=== PATIENT | male | born 1950 | race Two or more races ===

== ENCOUNTER → 2016-08-25 | Outpatient (CLI) | payer MEDICARE, OTHER ==
[~2016-08-25] MED LIST: ALBUTEROL SULF 2.5 MG/0.5ML(0.5%) NEB SOLN ONE; AMIT25TA9; BACL10TA; GABA300C8; PROVENTIL 90 MCG
== END | disposition home or self-care (01) ==
LOC: RT 08:31
PROVIDERS: ATTEND Internal Medicine Pulmonary Disease
DX: J44.9 Chronic obstructive pulmonary disease, unspecified (principal)
CPT/HCPCS: 94060

== ENCOUNTER → 2016-11-03 | Outpatient (CLI) | payer MEDICARE, OTHER ==
[~2016-11-03] MED LIST changes: -ALBUTEROL SULF 2.5 MG/0.5ML(0.5%) NEB SOLN ONE; +GABA-497; -GABA300C8
== END | disposition home or self-care (01) ==
LOC: RT 08:22
PROVIDERS: ATTEND Internal Medicine Pulmonary Disease
DX: J44.9 Chronic obstructive pulmonary disease, unspecified (principal); R09.02 Hypoxemia
CPT/HCPCS: 94620

== ENCOUNTER → 2017-02-23 | Outpatient (CLI) | payer MEDICARE, OTHER ==
[2017-02-23 11:42] LABS: Basophils # (auto) 0.1 uL; Eosinophils # (auto) 0.1 uL; Eosinophils % (auto) 1.6 % (0.0-7.0); Hematocrit 47.9 % (41.0-53.0); Hemoglobin 16.2 g/dL (13.5-17.5); Lymphocytes # (auto) 1.2 uL; Lymphocytes % (auto) 18.1 % (10.0-50.0); Mean Corpuscular Hemoglobin 28.5 pg (28.0-32.0); Mean Corpuscular Hgb Conc. 33.8 g/dL (32.0-36.0); Mean Corpuscular Volume 84.3 fL (80.0-100.0); Monocytes # (auto) 0.4 uL; Monocytes % (auto) 6.2 % (0.0-12.0); Neutrophils # (auto) 4.7 uL; Neutrophils % (auto) 73.1 % (37.0-80.0); Nucleated Red Blood Cells % 0.2 %; Platelet Count (auto) 234 10^3/uL (140-450); Red Blood Cells 5.68 10^6/uL (4.5-5.90); Red Cell Distribution Width 14.7 % (11.8-14.3); White Blood Cell 6.4 10^3/uL (4.4-10.8)
[2017-02-23 12:22] LABS: Albumin 4.1 g/dL (3.4-5.0); BUN/Creatinine Ratio 15.5; Bilirubin, Total 0.8 mg/dL (0.2-1.0); Calcium 9.2 mg/dL (8.5-10.1); Potassium 4.2 mmol/L (3.5-5.1); Total Protein 8.8 g/dL (6.4-8.2)
[2017-02-24 09:28] LABS: Urine Bacteria NONE SEEN /hpf (None Seen); Urine Blood Negative /uL (Negative); Urine Mucus FEW (None Seen); Urine Specific Gravity 1.027 (1.001-1.035); Urine WBC 1 /hpf (0 - 3)
== END | disposition home or self-care (01) ==
LOC: LAB 10:20
PROVIDERS: ATTEND Family Medicine
DX: J44.9 Chronic obstructive pulmonary disease, unspecified (principal); J84.10 Pulmonary fibrosis, unspecified; Z79.899 Other long term (current) drug therapy
CPT/HCPCS: 36415; 80053; 80061; 81001; 82306; 85025

== ENCOUNTER 2017-05-11 09:18 | Emergency (ER) | payer MEDICARE, OTHER ==
[~2017-05-11] VITALS: Ht 180.3 cm; Wt 88.5 kg
[~2017-05-11 09:18] MED LIST changes: -AMIT25TA9; +AMIT25TA9 PO; -GABA-497; +GABA300C10; -PROVENTIL 90 MCG; +PROVENTIL 90 MCG INH
[2017-05-11 11:12] LABS: Basophils # (auto) 0.1 uL; Eosinophils # (auto) 0.1 uL; Lymphocytes # (auto) 1.2 uL; Monocytes # (auto) 0.5 uL
[2017-05-11 11:18] LABS: Basophils % (auto) 0.8 % (0.0-2.0); Eosinophils % (auto) 1.5 % (0.0-7.0); Hematocrit 47.2 % (41.0-53.0); Hemoglobin 15.6 g/dL (13.5-17.5); Lymphocytes % (auto) 17.2 % (10.0-50.0); Mean Corpuscular Hemoglobin 27.1 pg (28.0-32.0); Mean Corpuscular Hgb Conc. 33.1 g/dL (32.0-36.0); Mean Corpuscular Volume 81.9 fL (80.0-100.0); Neutrophils % (auto) 72.5 % (37.0-80.0); Nucleated Red Blood Cells % 0.4 %; Platelet Count (auto) 224 10^3/uL (140-450); Red Blood Cells 5.76 10^6/uL (4.5-5.90); Red Cell Distribution Width 15.4 % (11.8-14.3); White Blood Cell 6.9 10^3/uL (4.4-10.8)
[2017-05-11 11:29] LABS: Albumin 4.2 g/dL (3.4-5.0); BUN/Creatinine Ratio 17.1; Magnesium 2.8 mg/dL (1.6-2.6); Potassium 4.2 mmol/L (3.5-5.1); Total Protein 8.9 g/dL (6.4-8.2)
[2017-05-11 14:48] VITALS: BP 146/82
== END 2017-05-11 14:55 | disposition home or self-care (01) ==
LOC: ER 09:18
DX: J44.9 Chronic obstructive pulmonary disease, unspecified (principal); R55 Syncope and collapse; Z87.891 Personal history of nicotine dependence
CPT/HCPCS: 36415; 70450; 71046; 80053; 83735; 84484; 85025; 93005

== ENCOUNTER → 2017-05-17 | Outpatient (CLI) | payer MEDICARE, OTHER ==
[~2017-05-17] MED LIST changes: +GLAT1INJ SC
== END | disposition home or self-care (01) ==
LOC: LAB 13:05
PROVIDERS: ATTEND Family Medicine
DX: R74.8 Abnormal levels of other serum enzymes (principal)
CPT/HCPCS: 36415; 84484

== ENCOUNTER 2017-06-08 12:12 | Inpatient (IN) | payer MEDICARE, OTHER ==
[~2017-06-08] VITALS: Ht 180.3 cm; Wt 81.2 kg
[~2017-06-08 12:12] MED LIST changes: -APIX5TAB PO; -DILT-10 PO; -GLAT1INJ SC; -IOHEXOL 350 MG/ML 100ML IJ ONE; -SILD20TA PO
[2017-06-08] MEDS ORDERED: methylPREDNISolone SOD SUCC 125 MG/2 ML VL IV ONE (12:30)
[2017-06-08 12:49] LABS: Eosinophils # (auto) 0.1 uL; Lymphocytes # (auto) 0.9 uL; Mean Corpuscular Hemoglobin 26.3 pg (28.0-32.0); Monocytes # (auto) 0.6 uL
[2017-06-08 12:50] LABS: Basophils # (auto) 0.1 uL; Basophils % (auto) 0.9 % (0.0-2.0); Eosinophils % (auto) 0.7 % (0.0-7.0); Hematocrit 43.4 % (41.0-53.0); Mean Corpuscular Hgb Conc. 32.2 g/dL (32.0-36.0); Mean Corpuscular Volume 81.7 fL (80.0-100.0); Monocytes % (auto) 9.1 % (0.0-12.0); Neutrophils # (auto) 5.4 uL; Neutrophils % (auto) 76.3 % (37.0-80.0); Nucleated Red Blood Cells % 0.2 %; Platelet Count (auto) 218 10^3/uL (140-450); Red Blood Cells 5.31 10^6/uL (4.5-5.90); Red Cell Distribution Width 16.2 % (11.8-14.3)
[2017-06-08 13:07] LABS: Alanine Aminotransferase 17 U/L (16-61); Albumin 3.6 g/dL (3.4-5.0); Anion Gap 3 (5-15); Aspartate Aminotransferase 18 U/L (15-37); BUN/Creatinine Ratio 13.1; Blood Urea Nitrogen 13 mg/dL (7-18); Calcium 8.6 mg/dL (8.5-10.1); Carbon Dioxide 31 mmol/L (21-32); Chloride 104 mmol/L (98-107); GFR African American 97 mL/min; GFR Non-African American 80 mL/min; Glucose 108 mg/dL (74-106); Magnesium 2.4 mg/dL (1.6-2.6); Potassium 4.8 mmol/L (3.5-5.1); Sodium 138 mmol/L (136-145)
[2017-06-08 13:13] LABS: Alkaline Phosphatase 70 U/L (45-117); Bilirubin, Total 0.9 mg/dL (0.2-1.0); Total Protein 8.2 g/dL (6.4-8.2)
[2017-06-08] MEDS ORDERED: diphenhdrAMINE HCL 50 MG/1 ML VL IV ONE (13:30)
[2017-06-08] MEDS ORDERED: DILTIAZEM HCL 120MG ER CAP PO ONE (13:45)
[2017-06-08] MEDS ORDERED: IOHEXOL 350 MG/ML 100ML IJ ONE (14:28)
[2017-06-08 14:29] LABS: INR 1.1 (0.9-1.15); Partial Thromboplastin Time 30.3 sec (22.64-33.71)
[2017-06-08] MEDS ORDERED: ENOXAPARIN SOD 100 MG/1 ML SYRINGE SC ONE (15:30)
[2017-06-08] MEDS ORDERED: NITROGLYCERIN 0.4 MG SL TAB SL PRN (16:45)
[2017-06-08] MEDS ORDERED: FUROSEMIDE 20 MG/2 ML VIAL IV ONE (16:45)
[2017-06-08] MEDS ORDERED: MORPHINE SULFATE 4 MG/ML SYR/VIAL IV PRN (16:45)
[2017-06-08] MEDS ORDERED: POTASSIUM CHL 20 Meq TABLET PO ONE (16:45)
[2017-06-08] MEDS ORDERED: cefTRIAXone 1GM/10ml IVPUSH 10 ML IV ONE (16:45)
[2017-06-08] MEDS ORDERED: AZITHROMYCIN 500MG/ 250ML 250 ML IV ONE (17:00)
[2017-06-08] MEDS: BUDESONIDE (INHALATION) 0.5 MG/2 ML NEB NEB SCH (18:05)
[2017-06-08] MEDS: IPRATROPIUM BROM 0.5 MG/2.5ML INH SOL NEB SCH (18:28)
[2017-06-08] MEDS: ALBUTEROL SULF 2.5 MG/0.5ML(0.5%) NEB SOLN NEB SCH (18:29)
[2017-06-08 18:37] VITALS: BP 122/81
[2017-06-08 18:59] LABS: Urine WBC None Seen /hpf (0 - 3)
[2017-06-08 19:25] LABS: Urine Bacteria NONE SEEN /hpf (None Seen); Urine Blood Negative /uL (Negative); Urine Specific Gravity 1.033 (1.001-1.035)
[2017-06-08 21:45] VITALS: BP 114/70
[2017-06-08] MEDS: GABAPENTIN 300 MG CAP PO SCH (21:51)
[2017-06-08] MEDS: AMITRIPTYLINE HCL 25 MG TAB PO SCH (21:51)
[2017-06-08] MEDS: BACLOFEN 10 MG TAB PO PRN (21:51)
[2017-06-09] MEDS ORDERED: ENOXAPARIN SOD 80 MG/0.8ML SYRINGE SC SCH (03:00)
[2017-06-09] MEDS ORDERED: GLAT1INJ SC (04:23)
[2017-06-09 05:00] VITALS: BP 97/62
[2017-06-09] MEDS: GABAPENTIN 300 MG CAP PO SCH ×3 (05:56→22:45)
[2017-06-09] MEDS: BACLOFEN 10 MG TAB PO PRN ×2 (05:56→22:45)
[2017-06-09] MEDS: ALBUTEROL SULF 2.5 MG/0.5ML(0.5%) NEB SOLN NEB SCH ×5 (06:57→23:52)
[2017-06-09] MEDS: IPRATROPIUM BROM 0.5 MG/2.5ML INH SOL NEB SCH ×5 (06:57→23:52)
[2017-06-09 07:03] LABS: BUN/Creatinine Ratio 19.3; Potassium 4.8 mmol/L (3.5-5.1)
[2017-06-09] MEDS: BUDESONIDE (INHALATION) 0.5 MG/2 ML NEB NEB SCH ×2 (07:17→19:21)
[2017-06-09 09:00] VITALS: BP 121/68
[2017-06-09] MEDS: DILTIAZEM HCL 120MG ER CAP PO SCH ×2 (10:00→11:58)
[2017-06-09] MEDS: AZITHROMYCIN 500MG/ 250ML 250 ML IV SCH (10:14)
[2017-06-09] MEDS: cefTRIAXone 1GM/10ml IVPUSH 10 ML IV SCH (10:14)
[2017-06-09 13:00] VITALS: BP 133/68
[2017-06-09 17:00] VITALS: BP 105/60
[2017-06-09 22:00] VITALS: BP 106/70
[2017-06-09] MEDS: APIXABAN 5 MG TAB PO SCH (22:44)
[2017-06-09] MEDS: AMITRIPTYLINE HCL 25 MG TAB PO SCH (22:44)
[2017-06-10 05:16] VITALS: BP 104/55
[2017-06-10] MEDS: BACLOFEN 10 MG TAB PO PRN ×2 (06:16→21:08)
[2017-06-10] MEDS: GABAPENTIN 300 MG CAP PO SCH ×3 (06:16→21:07)
[2017-06-10] MEDS: ALBUTEROL SULF 2.5 MG/0.5ML(0.5%) NEB SOLN NEB SCH ×3 (06:57→19:17)
[2017-06-10] MEDS: BUDESONIDE (INHALATION) 0.5 MG/2 ML NEB NEB SCH ×2 (06:57→19:18)
[2017-06-10] MEDS: IPRATROPIUM BROM 0.5 MG/2.5ML INH SOL NEB SCH ×3 (06:57→19:17)
[2017-06-10 07:14] LABS: Albumin 3.1 g/dL (3.4-5.0); BUN/Creatinine Ratio 24.1; Calcium 8.3 mg/dL (8.5-10.1); Potassium 4.6 mmol/L (3.5-5.1)
[2017-06-10 07:19] LABS: Bilirubin, Total 0.4 mg/dL (0.2-1.0); Total Protein 7.1 g/dL (6.4-8.2)
[2017-06-10 07:33] LABS: Basophils # (auto) 0 uL; Hemoglobin 12.4 g/dL (13.5-17.5); Neutrophils # (auto) 5.9 uL; Nucleated Red Blood Cells % 0.1 %; White Blood Cell 7.8 10^3/uL (4.4-10.8)
[2017-06-10 07:41] LABS: Basophils % (auto) 0.6 % (0.0-2.0); Eosinophils # (auto) 0 uL; Eosinophils % (auto) 0.6 % (0.0-7.0); Hematocrit 37.4 % (41.0-53.0); Lymphocytes # (auto) 1.3 uL; Lymphocytes % (auto) 16.2 % (10.0-50.0); Mean Corpuscular Hemoglobin 26.6 pg (28.0-32.0); Mean Corpuscular Hgb Conc. 33.1 g/dL (32.0-36.0); Mean Corpuscular Volume 80.4 fL (80.0-100.0); Monocytes # (auto) 0.5 uL; Monocytes % (auto) 6.9 % (0.0-12.0); Neutrophils % (auto) 75.7 % (37.0-80.0); Platelet Count (auto) 223 10^3/uL (140-450); Red Blood Cells 4.66 10^6/uL (4.5-5.90); Red Cell Distribution Width 16.6 % (11.8-14.3)
[2017-06-10 08:00] VITALS: BP 109/67
[2017-06-10] MEDS: cefTRIAXone 1GM/10ml IVPUSH 10 ML IV SCH (08:46)
[2017-06-10] MEDS: AZITHROMYCIN 500MG/ 250ML 250 ML IV SCH (10:24)
[2017-06-10] MEDS: APIXABAN 5 MG TAB PO SCH ×2 (10:25→21:07)
[2017-06-10 12:00] VITALS: BP 121/75
[2017-06-10] MEDS ORDERED: APIXABAN 5 MG TAB PO SCH (14:45)
[2017-06-10 17:00] VITALS: BP 100/65
[2017-06-10] MEDS: AMITRIPTYLINE HCL 25 MG TAB PO SCH (21:07)
[2017-06-10 22:00] VITALS: BP 100/63
[2017-06-11 05:00] VITALS: BP 91/59
[2017-06-11] MEDS: GABAPENTIN 300 MG CAP PO SCH (06:10)
[2017-06-11] MEDS: BACLOFEN 10 MG TAB PO PRN (06:10)
[2017-06-11] MEDS: IPRATROPIUM BROM 0.5 MG/2.5ML INH SOL NEB SCH ×3 (06:22→11:47)
[2017-06-11] MEDS: ALBUTEROL SULF 2.5 MG/0.5ML(0.5%) NEB SOLN NEB SCH ×3 (06:22→11:47)
[2017-06-11 08:00] VITALS: BP 118/69
[2017-06-11] MEDS: APIXABAN 5 MG TAB PO SCH (09:23)
[2017-06-11] MEDS ORDERED: DILTIAZEM HCL 120MG ER CAP PO SCH (10:00)
[2017-06-11] MEDS: BUDESONIDE (INHALATION) 0.5 MG/2 ML NEB NEB SCH (11:47)
[2017-06-11 13:00] VITALS: BP 125/73
[2017-06-11 14:54] VITALS: BP 125/73
[2017-06-11] MEDS ORDERED: APIXABAN 5 MG TAB PO SCH (22:00)
[2017-06-16] MEDS ORDERED: APIXABAN 5 MG TAB PO SCH (22:00)
== END 2017-06-11 15:25 | disposition home or self-care (01) | DRG 175 ==
LOC: ER 12:12 → TELE 12:13 → TELE-WESTW 20:15
PROVIDERS: ADMIT Internal Medicine; ATTEND Internal Medicine
DX: I26.99 Other pulmonary embolism without acute cor pulmonale (principal); I50.31 Acute diastolic (congestive) heart failure; J96.20 Acute and chronic respiratory failure, unspecified whether with hypoxia or hypercapnia; G35 Multiple sclerosis; I11.9 Hypertensive heart disease without heart failure; I27.20 Pulmonary hypertension, unspecified; J43.9 Emphysema, unspecified; J84.10 Pulmonary fibrosis, unspecified; F32.9 Major depressive disorder, single episode, unspecified; Z60.2 Problems related to living alone; G89.4 Chronic pain syndrome; Z79.01 Long term (current) use of anticoagulants; Z87.891 Personal history of nicotine dependence; Z99.81 Dependence on supplemental oxygen; Z79.899 Other long term (current) drug therapy; Z90.2 Acquired absence of lung [part of]
CPT/HCPCS: 36415; 71045; 71275; 80048; 80053; 81001; 83735; 83880; 84484; 85025; 85379; 85610; 85730; 86850; 86900; 86901; 93005; 93306; 93970; 94640; 94761; 96365; 96372; 96375; 99291

== ENCOUNTER → 2017-06-08 | Outpatient (CLI) | payer MEDICARE, OTHER ==
[~2017-06-08] MED LIST changes: +APIX5TAB PO; +DILT-10 PO; +IOHEXOL 350 MG/ML 100ML IJ ONE; +SILD20TA PO
== END | disposition home or self-care (01) ==
LOC: XYW 10:38
PROVIDERS: ATTEND Internal Medicine
DX: R55 Syncope and collapse (principal)
CPT/HCPCS: 93306

== ENCOUNTER → 2017-08-09 | Outpatient (CLI) | payer MEDICARE, OTHER ==
[~2017-08-09] MED LIST changes: +APIX5TAB PO; +DILT-10 PO; +GLAT1INJ SC; +SILD20TA PO
[2017-08-09 11:26] LABS: Basophils # (auto) 0.2 uL; Basophils % (auto) 3.1 % (0.0-2.0); Eosinophils # (auto) 0.2 uL; Eosinophils % (auto) 3.3 % (0.0-7.0); Hematocrit 44.9 % (41.0-53.0); Hemoglobin 15.1 g/dL (13.5-17.5); Lymphocytes # (auto) 1.3 uL; Lymphocytes % (auto) 20.5 % (10.0-50.0); Mean Corpuscular Hgb Conc. 33.6 g/dL (32.0-36.0); Mean Corpuscular Volume 83.3 fL (80.0-100.0); Monocytes # (auto) 0.6 uL; Monocytes % (auto) 9.4 % (0.0-12.0); Neutrophils # (auto) 3.9 uL; Neutrophils % (auto) 63.7 % (37.0-80.0); Nucleated Red Blood Cells % 0.6 %; Platelet Count (auto) 181 10^3/uL (140-450); Red Blood Cells 5.39 10^6/uL (4.5-5.90); Red Cell Distribution Width 18.1 % (11.8-14.3); White Blood Cell 6.2 10^3/uL (4.4-10.8)
[2017-08-09 11:39] LABS: INR 0.98 (0.9-1.15); Partial Thromboplastin Time 26.3 sec (22.64-33.71); Prothrombin Time 10.7 sec (9.37-12.3)
[2017-08-09 12:34] LABS: Albumin 3.9 g/dL (3.4-5.0); Bilirubin, Total 0.9 mg/dL (0.2-1.0); Calcium 8.9 mg/dL (8.5-10.1); Potassium 4.6 mmol/L (3.5-5.1); Total Protein 7.8 g/dL (6.4-8.2)
== END | disposition home or self-care (01) ==
LOC: LAB 11:11
PROVIDERS: ATTEND Internal Medicine
DX: Z01.812 Encounter for preprocedural laboratory examination (principal); I27.20 Pulmonary hypertension, unspecified; I10 Essential (primary) hypertension; J44.9 Chronic obstructive pulmonary disease, unspecified; Z79.01 Long term (current) use of anticoagulants; Z87.891 Personal history of nicotine dependence
CPT/HCPCS: 36415; 80053; 85025; 85610; 85730

== ENCOUNTER 2017-08-11 08:22 | Day surgery (SDC) | payer MEDICARE, OTHER ==
[~2017-08-11] VITALS: Ht 180.3 cm; Wt 84.0 kg
[2017-08-11] MEDS ORDERED: LIDOCAINE HCL 2 %PF INJ 10ML AMP IJ ONE (08:34)
[2017-08-11] MEDS ORDERED: IODIXANOL 320MG/ML 100ML BTL IV ONE (08:34)
[2017-08-11] MEDS ORDERED: ANGIOMAX 250 MG VIAL IV ONE (08:56)
[2017-08-11] MEDS ORDERED: MIDAZOLAM HCL 1MG/1ML-2 ML VIAL ONE (08:56)
[2017-08-11] MEDS ORDERED: SODIUM CHL 0.9% 0 ML ONE (08:56)
[2017-08-11] MEDS ORDERED: fentaNYL CITRATE 100 MCG/2 ML VL ONE (08:56)
== END 2017-08-11 12:45 | disposition home or self-care (01) ==
LOC: CATH 08:22
PROVIDERS: ATTEND Internal Medicine
DX: I27.20 Pulmonary hypertension, unspecified (principal); I42.9 Cardiomyopathy, unspecified; Z82.49 Family history of ischemic heart disease and other diseases of the circulatory system; Z86.711 Personal history of pulmonary embolism; G35 Multiple sclerosis; J43.9 Emphysema, unspecified; F32.9 Major depressive disorder, single episode, unspecified; F41.9 Anxiety disorder, unspecified; Z85.118 Personal history of other malignant neoplasm of bronchus and lung; Z87.01 Personal history of pneumonia (recurrent); Z87.891 Personal history of nicotine dependence
CPT/HCPCS: 36600; 82805; C1751; C1760; C1769; C1894; J1644; J2250; J3010; Q9967; 93005; 93458; 99152; 99153

== ENCOUNTER → 2017-09-28 | Outpatient (CLI) | payer MEDICARE, OTHER | END | disposition home or self-care (01) | LOC: XYW 08:27 | PROVIDERS: ATTEND Internal Medicine | DX: I08.8 Other rheumatic multiple valve diseases (principal); I10 Essential (primary) hypertension; J44.9 Chronic obstructive pulmonary disease, unspecified; Z79.01 Long term (current) use of anticoagulants | CPT/HCPCS: 93306 ==

== ENCOUNTER → 2017-10-05 | Outpatient (CLI) | payer MEDICARE, OTHER ==
[2017-10-05 09:50] VITALS: BP 128/74
[2017-10-05 12:15] VITALS: BP 136/86
== END | disposition home or self-care (01) ==
LOC: CHF HDHVI 09:58
PROVIDERS: ATTEND Internal Medicine
DX: I10 Essential (primary) hypertension (principal); I27.20 Pulmonary hypertension, unspecified; Z79.01 Long term (current) use of anticoagulants
CPT/HCPCS: 93701; 94618; G0463

== ENCOUNTER → 2017-11-29 | Outpatient (CLI) | payer MEDICARE, OTHER ==
[~2017-11-29] VITALS: Ht 30.5 cm; Wt 79.6 kg
[~2017-11-29] MED LIST changes: +FUROSEMIDE 40 MG/4 ML VIAL IV ONE; +FUROSEMIDE 40 MG/4 ML VIAL ONE; +POTASSIUM CHL 20 Meq TABLET PO ONE
[2017-11-29 08:55] VITALS: BP 104/60
[2017-11-29 09:47] VITALS: BP 96/54
[2017-11-29 12:05] LABS: Basophils # (auto) 0 uL; Basophils % (auto) 0.7 % (0.0-2.0); Eosinophils # (auto) 0.1 uL; Eosinophils % (auto) 2.6 % (0.0-7.0); Hematocrit 39.9 % (41.0-53.0); Hemoglobin 13.4 g/dL (13.5-17.5); Lymphocytes # (auto) 0.6 uL; Lymphocytes % (auto) 15.4 % (10.0-50.0); Mean Corpuscular Hemoglobin 28.9 pg (28.0-32.0); Mean Corpuscular Hgb Conc. 33.6 g/dL (32.0-36.0); Monocytes # (auto) 0.3 uL; Monocytes % (auto) 8.1 % (0.0-12.0); Neutrophils # (auto) 2.8 uL; Neutrophils % (auto) 73.2 % (37.0-80.0); Nucleated Red Blood Cells % 0.2 %; Platelet Count (auto) 156 10^3/uL (140-450); Red Blood Cells 4.64 10^6/uL (4.5-5.90); Red Cell Distribution Width 14.8 % (11.8-14.3); White Blood Cell 3.8 10^3/uL (4.4-10.8)
[2017-11-29 12:14] LABS: BUN/Creatinine Ratio 15.3; Calcium 8.2 mg/dL (8.5-10.1)
== END | disposition home or self-care (01) ==
LOC: CHF HDHVI 08:54
PROVIDERS: ATTEND Internal Medicine
DX: I11.0 Hypertensive heart disease with heart failure (principal); I50.23 Acute on chronic systolic (congestive) heart failure; D64.9 Anemia, unspecified; F41.9 Anxiety disorder, unspecified; F32.9 Major depressive disorder, single episode, unspecified; J44.9 Chronic obstructive pulmonary disease, unspecified; G35 Multiple sclerosis; I25.10 Atherosclerotic heart disease of native coronary artery without angina pectoris; Z79.01 Long term (current) use of anticoagulants; Z79.899 Other long term (current) drug therapy
CPT/HCPCS: 36415; 80048; 83880; 85025; 96374; G0463; J1940

== ENCOUNTER → 2017-12-02 | Outpatient (CLI) | payer MEDICARE, OTHER ==
[~2017-12-02] MED LIST changes: +POTASSIUM CHL 10 Meq TABLET PO ONE; -POTASSIUM CHL 20 Meq TABLET PO ONE
[2017-12-02 09:25] VITALS: BP 103/60
[2017-12-02 10:30] VITALS: BP 111/61
== END | disposition home or self-care (01) ==
LOC: CHF HDHVI 09:28
PROVIDERS: ATTEND Internal Medicine Cardiovascular Disease
DX: I27.21 Secondary pulmonary arterial hypertension (principal); R06.02 Shortness of breath; G35 Multiple sclerosis; I11.0 Hypertensive heart disease with heart failure; I50.23 Acute on chronic systolic (congestive) heart failure; I25.10 Atherosclerotic heart disease of native coronary artery without angina pectoris; J44.9 Chronic obstructive pulmonary disease, unspecified; F41.9 Anxiety disorder, unspecified; F32.9 Major depressive disorder, single episode, unspecified; Z79.01 Long term (current) use of anticoagulants; Z79.899 Other long term (current) drug therapy
CPT/HCPCS: 96374; G0463; J1940

== ENCOUNTER → 2017-12-09 | Outpatient (CLI) | payer MEDICARE, OTHER ==
[~2017-12-09] MED LIST changes: -FUROSEMIDE 40 MG/4 ML VIAL IV ONE; -FUROSEMIDE 40 MG/4 ML VIAL ONE; -POTASSIUM CHL 10 Meq TABLET PO ONE
== END | disposition home or self-care (01) ==
LOC: XYW 08:35
PROVIDERS: ATTEND Internal Medicine
DX: I08.1 Rheumatic disorders of both mitral and tricuspid valves (principal); I27.20 Pulmonary hypertension, unspecified; I42.9 Cardiomyopathy, unspecified
CPT/HCPCS: 93306

== ENCOUNTER → 2017-12-16 | Outpatient (CLI) | payer MEDICARE, OTHER ==
[2017-12-16 08:50] VITALS: BP 114/65
[2017-12-16 09:35] VITALS: BP 112/69
== END | disposition home or self-care (01) ==
LOC: CHF HDHVI 08:55
PROVIDERS: ATTEND Internal Medicine Cardiovascular Disease
DX: E55.9 Vitamin D deficiency, unspecified (principal); I25.10 Atherosclerotic heart disease of native coronary artery without angina pectoris; G35 Multiple sclerosis; I27.21 Secondary pulmonary arterial hypertension; J44.9 Chronic obstructive pulmonary disease, unspecified; Z87.891 Personal history of nicotine dependence
CPT/HCPCS: 82306; G0463

== ENCOUNTER → 2017-12-30 | Outpatient (CLI) | payer MEDICARE, OTHER ==
[2017-12-30 09:00] VITALS: BP 122/71
[2017-12-30 10:05] VITALS: BP 117/67
[2017-12-30 12:04] LABS: Basophils # (auto) 0 uL; Eosinophils # (auto) 0.1 uL; Eosinophils % (auto) 2.3 % (0.0-7.0); Hemoglobin 15.1 g/dL (13.5-17.5); Lymphocytes # (auto) 0.7 uL; Lymphocytes % (auto) 18.4 % (10.0-50.0); Mean Corpuscular Hemoglobin 28.8 pg (28.0-32.0); Mean Corpuscular Hgb Conc. 33.7 g/dL (32.0-36.0); Mean Corpuscular Volume 85.6 fL (80.0-100.0); Monocytes # (auto) 0.3 uL; Neutrophils # (auto) 2.6 uL; Neutrophils % (auto) 71.3 % (37.0-80.0); Nucleated Red Blood Cells % 0.1 %; Platelet Count (auto) 185 10^3/uL (140-450); Red Blood Cells 5.26 10^6/uL (4.5-5.90); White Blood Cell 3.7 10^3/uL (4.4-10.8)
[2017-12-30 12:17] LABS: Albumin 3.9 g/dL (3.4-5.0); Bilirubin, Total 0.8 mg/dL (0.2-1.0); Calcium 8.5 mg/dL (8.5-10.1); Magnesium 2.8 mg/dL (1.6-2.6); Potassium 4.3 mmol/L (3.5-5.1)
== END | disposition home or self-care (01) ==
LOC: CHF HDHVI 08:59
PROVIDERS: ATTEND Internal Medicine Cardiovascular Disease
DX: I11.0 Hypertensive heart disease with heart failure (principal); I50.23 Acute on chronic systolic (congestive) heart failure; D64.9 Anemia, unspecified; E83.40 Disorders of magnesium metabolism, unspecified; I27.21 Secondary pulmonary arterial hypertension; J44.9 Chronic obstructive pulmonary disease, unspecified
CPT/HCPCS: 36415; 80053; 83735; 83880; 85025; 93701; G0463

== ENCOUNTER → 2018-01-06 | Outpatient (CLI) | payer MEDICARE, OTHER ==
[2018-01-06 08:50] VITALS: BP 116/67
[2018-01-06 09:45] VITALS: BP 112/64
== END | disposition home or self-care (01) ==
LOC: CHF HDHVI 08:57
PROVIDERS: ATTEND Internal Medicine Cardiovascular Disease
DX: I50.9 Heart failure, unspecified (principal); J43.9 Emphysema, unspecified; Z99.81 Dependence on supplemental oxygen; F32.9 Major depressive disorder, single episode, unspecified
CPT/HCPCS: G0463

== ENCOUNTER → 2018-02-01 | Outpatient (CLI) | payer MEDICARE, OTHER ==
[~2018-02-01] MED LIST changes: +CYANOCOBALAMIN (B-12) 1000 MCG/1 ML VIAL IM ONE; +CYANOCOBALAMIN (B-12) 1000 MCG/1 ML VIAL ONE
[2018-02-01 08:50] VITALS: BP 125/68
[2018-02-01 09:38] VITALS: BP 110/65
[2018-02-01 12:06] LABS: Basophils # (auto) 0 uL; Basophils % (auto) 1.2 % (0.0-2.0); Eosinophils # (auto) 0.1 uL; Eosinophils % (auto) 2.7 % (0.0-7.0); Hematocrit 41.3 % (41.0-53.0); Hemoglobin 14.1 g/dL (13.5-17.5); Lymphocytes # (auto) 0.7 uL; Lymphocytes % (auto) 17.8 % (10.0-50.0); Mean Corpuscular Hemoglobin 28.5 pg (28.0-32.0); Mean Corpuscular Hgb Conc. 34.1 g/dL (32.0-36.0); Mean Corpuscular Volume 83.5 fL (80.0-100.0); Monocytes # (auto) 0.3 uL; Neutrophils % (auto) 71.3 % (37.0-80.0); Nucleated Red Blood Cells % 0.5 %; Platelet Count (auto) 188 10^3/uL (140-450); Red Blood Cells 4.95 10^6/uL (4.5-5.90); Red Cell Distribution Width 15.2 % (11.8-14.3); White Blood Cell 4.2 10^3/uL (4.4-10.8)
[2018-02-01 12:40] LABS: Albumin 3.8 g/dL (3.4-5.0); BUN/Creatinine Ratio 16.2; Bilirubin, Total 0.7 mg/dL (0.2-1.0); Calcium 8.5 mg/dL (8.5-10.1)
== END | disposition home or self-care (01) ==
LOC: CHF HDHVI 08:56
PROVIDERS: ATTEND Internal Medicine Cardiovascular Disease
DX: D64.9 Anemia, unspecified (principal); I11.0 Hypertensive heart disease with heart failure; I50.23 Acute on chronic systolic (congestive) heart failure; J44.9 Chronic obstructive pulmonary disease, unspecified; I27.21 Secondary pulmonary arterial hypertension; Z87.891 Personal history of nicotine dependence; Z79.01 Long term (current) use of anticoagulants; Z79.899 Other long term (current) drug therapy; Z99.81 Dependence on supplemental oxygen
CPT/HCPCS: 36415; 80053; 85025; 93701; 96372; G0463; J3420

== ENCOUNTER → 2018-02-28 | Outpatient (CLI) | payer MEDICARE, OTHER ==
[2018-02-28 09:15] VITALS: BP 123/66
[2018-02-28 09:55] VITALS: BP 122/69
== END | disposition home or self-care (01) ==
LOC: CHF HDHVI 08:53
PROVIDERS: ATTEND Internal Medicine Cardiovascular Disease
DX: D64.9 Anemia, unspecified (principal); I11.0 Hypertensive heart disease with heart failure; I50.23 Acute on chronic systolic (congestive) heart failure; I27.21 Secondary pulmonary arterial hypertension; J43.9 Emphysema, unspecified; F32.9 Major depressive disorder, single episode, unspecified; J44.9 Chronic obstructive pulmonary disease, unspecified; Z79.01 Long term (current) use of anticoagulants; Z79.899 Other long term (current) drug therapy; Z87.891 Personal history of nicotine dependence; Z99.81 Dependence on supplemental oxygen
CPT/HCPCS: 93701; 96372; G0463; J3420

== ENCOUNTER → 2018-03-02 | Outpatient (CLI) | payer MEDICARE, OTHER ==
[~2018-03-02] MED LIST changes: -CYANOCOBALAMIN (B-12) 1000 MCG/1 ML VIAL IM ONE; -CYANOCOBALAMIN (B-12) 1000 MCG/1 ML VIAL ONE
== END | disposition home or self-care (01) ==
LOC: XY 08:22
PROVIDERS: ATTEND Internal Medicine
DX: J98.11 Atelectasis (principal); I77.89 Other specified disorders of arteries and arterioles; J98.4 Other disorders of lung; R06.02 Shortness of breath; R07.9 Chest pain, unspecified
CPT/HCPCS: 71045; 78582; A9540; A9558

== ENCOUNTER → 2018-03-14 | Outpatient (CLI) | payer MEDICARE, OTHER ==
[2018-03-14 08:50] VITALS: BP 128/68
[2018-03-14 09:40] VITALS: BP 114/69
[2018-03-14 12:29] LABS: Basophils # (auto) 0.1 uL; Basophils % (auto) 1.1 % (0.0-2.0); Eosinophils # (auto) 0.1 uL; Eosinophils % (auto) 3.1 % (0.0-7.0); Hematocrit 43.5 % (41.0-53.0); Hemoglobin 14.6 g/dL (13.5-17.5); Lymphocytes # (auto) 0.9 uL; Lymphocytes % (auto) 18.5 % (10.0-50.0); Mean Corpuscular Hemoglobin 27.9 pg (28.0-32.0); Mean Corpuscular Hgb Conc. 33.5 g/dL (32.0-36.0); Mean Corpuscular Volume 83.2 fL (80.0-100.0); Monocytes # (auto) 0.4 uL; Monocytes % (auto) 8.3 % (0.0-12.0); Neutrophils # (auto) 3.3 uL; Nucleated Red Blood Cells % 0.6 %; Platelet Count (auto) 187 10^3/uL (140-450); Red Blood Cells 5.22 10^6/uL (4.5-5.90); Red Cell Distribution Width 15.2 % (11.8-14.3); White Blood Cell 4.8 10^3/uL (4.4-10.8)
[2018-03-14 12:34] LABS: Calcium 8.7 mg/dL (8.5-10.1); Magnesium 2.6 mg/dL (1.6-2.6); Potassium 4.1 mmol/L (3.5-5.1)
[2018-03-14 12:37] LABS: BUN/Creatinine Ratio 14.3
== END | disposition home or self-care (01) ==
LOC: CHF HDHVI 09:02
PROVIDERS: ATTEND Internal Medicine Cardiovascular Disease
DX: E83.40 Disorders of magnesium metabolism, unspecified (principal); I10 Essential (primary) hypertension; D64.9 Anemia, unspecified; J44.9 Chronic obstructive pulmonary disease, unspecified; G35 Multiple sclerosis
CPT/HCPCS: 36415; 80048; 83735; 85025; G0463

== ENCOUNTER → 2018-04-04 | Outpatient (CLI) | payer MEDICARE, OTHER ==
[~2018-04-04] VITALS: Ht 30.5 cm; Wt 0.5 kg
[~2018-04-04] MED LIST changes: +CYANOCOBALAMIN (B-12) 1000 MCG/1 ML VIAL IM ONE; +CYANOCOBALAMIN (B-12) 1000 MCG/1 ML VIAL ONE
[2018-04-04 09:00] VITALS: BP 129/79
[2018-04-04 10:20] VITALS: BP 114/73
== END | disposition home or self-care (01) ==
LOC: CHF HDHVI 08:50
PROVIDERS: ATTEND Internal Medicine Cardiovascular Disease
DX: R06.02 Shortness of breath (principal); G35 Multiple sclerosis; I27.20 Pulmonary hypertension, unspecified; J43.9 Emphysema, unspecified; I11.0 Hypertensive heart disease with heart failure; I50.9 Heart failure, unspecified; G89.4 Chronic pain syndrome; F41.9 Anxiety disorder, unspecified; F32.9 Major depressive disorder, single episode, unspecified; I25.10 Atherosclerotic heart disease of native coronary artery without angina pectoris; I42.9 Cardiomyopathy, unspecified; Z79.01 Long term (current) use of anticoagulants; Z87.891 Personal history of nicotine dependence; Z79.899 Other long term (current) drug therapy; Z99.81 Dependence on supplemental oxygen; Z86.711 Personal history of pulmonary embolism
CPT/HCPCS: 93701; 96372; G0463; J3420

== ENCOUNTER → 2018-05-04 | Outpatient (CLI) | payer MEDICARE, OTHER ==
[2018-05-04 09:00] VITALS: BP 114/77
[2018-05-04 09:57] VITALS: BP 106/74
--- NOTE | 2018-05-04 09:57 | NUR ---
CHF CLINIC Discharge Instructions See e-MAR for any mediations given with this visit. Patient education given on disease process. Patient verbalized understanding. Previous labs reviewed. Patient discharged in stable condition with after care instructions and follow up appointment WITH DR VALENZUELA ON 05/05/18 RETURN TO CLINIC ON 06/08/18. NOTE B12 IM L DELTOID ADMIN BY GILMAR LEAHY. CARDIODYNAMICS PERFORMED BY GILMAR LEAHY AND RESULTS REVIEWED WITH PATIENT BY MOISES ENNIS.
[2018-05-04 11:52] LABS: Basophils # (auto) 0 uL; Basophils % (auto) 1.2 % (0.0-2.0); Eosinophils # (auto) 0.1 uL; Eosinophils % (auto) 2.7 % (0.0-7.0); Hematocrit 44.4 % (41.0-53.0); Hemoglobin 14.7 g/dL (13.5-17.5); Lymphocytes # (auto) 0.7 uL; Mean Corpuscular Hemoglobin 27.5 pg (28.0-32.0); Mean Corpuscular Hgb Conc. 33.1 g/dL (32.0-36.0); Mean Corpuscular Volume 83.3 fL (80.0-100.0); Monocytes # (auto) 0.3 uL; Monocytes % (auto) 8.2 % (0.0-12.0); Neutrophils # (auto) 2.8 uL; Neutrophils % (auto) 69.9 % (37.0-80.0); Nucleated Red Blood Cells % 0.2 %; Platelet Count (auto) 168 10^3/uL (140-450); Red Blood Cells 5.33 10^6/uL (4.5-5.90); Red Cell Distribution Width 15.8 % (11.8-14.3); White Blood Cell 4.1 10^3/uL (4.4-10.8)
[2018-05-04 12:03] LABS: Chloride 107 mmol/L (98-107); Potassium 4.5 mmol/L (3.5-5.1); Sodium 140 mmol/L (136-145)
[2018-05-04 12:21] LABS: Alanine Aminotransferase 17 U/L (16-61); Albumin 3.6 g/dL (3.4-5.0); Alkaline Phosphatase 59 U/L (45-117); Anion Gap 6 (5-15); Aspartate Aminotransferase 15 U/L (15-37); BUN/Creatinine Ratio 17.6; Bilirubin, Total 0.7 mg/dL (0.2-1.0); Blood Urea Nitrogen 23 mg/dL (7-18); Calcium 8.6 mg/dL (8.5-10.1); Carbon Dioxide 27 mmol/L (21-32); GFR Non-African American 58 mL/min; Glucose 123 mg/dL (74-106); Magnesium 2.7 mg/dL (1.6-2.6); Total Protein 7.7 g/dL (6.4-8.2)
[2018-05-04 12:34] LABS: GFR African American > 60 mL/min
== END | disposition home or self-care (01) ==
LOC: CHF HDHVI 09:02
PROVIDERS: ATTEND Internal Medicine Cardiovascular Disease
DX: I11.0 Hypertensive heart disease with heart failure (principal); I50.9 Heart failure, unspecified; E83.40 Disorders of magnesium metabolism, unspecified; D64.9 Anemia, unspecified; R06.02 Shortness of breath; I27.21 Secondary pulmonary arterial hypertension; R53.83 Other fatigue; J43.9 Emphysema, unspecified; I42.9 Cardiomyopathy, unspecified; F41.9 Anxiety disorder, unspecified; F32.9 Major depressive disorder, single episode, unspecified; Z85.118 Personal history of other malignant neoplasm of bronchus and lung; Z79.899 Other long term (current) drug therapy; Z79.01 Long term (current) use of anticoagulants; Z79.891 Long term (current) use of opiate analgesic; Z86.711 Personal history of pulmonary embolism; Z90.2 Acquired absence of lung [part of]; Z87.01 Personal history of pneumonia (recurrent); Z99.81 Dependence on supplemental oxygen
CPT/HCPCS: 36415; 80053; 83735; 85025; 93701; 96372; G0463; J3420

== ENCOUNTER → 2018-06-08 | Outpatient (CLI) | payer MEDICARE, OTHER ==
[~2018-06-08] MED LIST changes: -CYANOCOBALAMIN (B-12) 1000 MCG/1 ML VIAL IM ONE; -CYANOCOBALAMIN (B-12) 1000 MCG/1 ML VIAL ONE
[2018-06-08 09:47] VITALS: BP 131/78
[2018-06-08 10:23] VITALS: BP 133/76
--- NOTE | 2018-06-08 10:23 | NUR ---
IN TO CLINIC FOR PAH FOLLOWUP . HOME OXYGEN IN USE AT 2 LPM CONTINUOUS. CARDIODYNAMICS DONE. MEDICATION REVIEW DONE. ADL MANAGEMENT DONE. REVIEWED PREVIOUS LABS AND ADDITIONAL LABS DRAWN AND SENT TODAY. Discharge Instructions See e-MAR for any mediations given with this visit. Patient education given on disease process. Patient verbalized understanding. Previous labs reviewed. Patient discharged in stable condition with after care instructions and follow up appointment IN 2 WEEK FOR CHF AND IN [address] VALENZUELA. ALL CARE PROVIDED BY NAVA ENNIS.
[2018-06-08 12:03] LABS: Potassium 4.3 mmol/L (3.5-5.1)
== END | disposition home or self-care (01) ==
LOC: CHF HDHVI 09:45
PROVIDERS: ATTEND Internal Medicine Cardiovascular Disease
DX: E87.6 Hypokalemia (principal); R94.4 Abnormal results of kidney function studies; I27.20 Pulmonary hypertension, unspecified; I25.10 Atherosclerotic heart disease of native coronary artery without angina pectoris; Z99.81 Dependence on supplemental oxygen
CPT/HCPCS: 36415; 82565; 84132; 84520; 93701; G0463

== ENCOUNTER → 2018-06-17 | Outpatient (CLI) | payer MEDICARE, OTHER ==
[~2018-06-17] MED LIST changes: +DILT120T8 PO; +FLUT100I IN; -GABA300C10; +GABA300C10 PO; +IBUP200C3 PO; +PRE5T PO; +RIOC1TAB9 PO
[2018-06-17 10:30] VITALS: BP 112/66
[2018-06-17 11:20] VITALS: BP 99/63
--- NOTE | 2018-06-17 11:20 | NUR ---
CHF CLINIC Discharge Instructions See e-MAR for any mediations given with this visit. Patient education given on disease process. Patient verbalized understanding. Previous labs reviewed. Patient discharged in stable condition with after care instructions and follow up appointment ON WEDNESDAY. NOTE 1100 PERFORMIST ADMIN BY MALLIKA ENNIS. CHEST XRAY COMPLETED.
== END | disposition home or self-care (01) ==
LOC: CHF HDHVI 10:36
PROVIDERS: ATTEND Internal Medicine Cardiovascular Disease
DX: Z53.9 Procedure and treatment not carried out, unspecified reason (principal)
CPT/HCPCS: 71046; 94640; G0463

== ENCOUNTER → 2018-07-25 | Outpatient (CLI) | payer MEDICARE, OTHER ==
[~2018-07-25] MED LIST changes: +CYANOCOBALAMIN (B-12) 1000 MCG/1 ML VIAL IM ONE; +CYANOCOBALAMIN (B-12) 1000 MCG/1 ML VIAL ONE; -DILT-10 PO; -DILT120T8 PO; +TESTOSTERONE CYPIONATE 200 MG/ML 1ML VIAL IM ONE
[2018-07-25 10:45] VITALS: BP_SYST 100; BP_SYST 99; BP_DIAS 52; BP_DIAS 58
--- NOTE | 2018-07-25 10:45 | NUR ---
IN TO CLINIC FOR PAH FOLLOWUP AFTER HOSPITALIZATION. DYSPNEIC, LEANING AGAINST WALL WITH PORTABLE OXYGEN CONCENTRATOR FROM HOME AT 4 LPM. LIPS INITIALLY SLIGHTLY DUSKY, IMPROVED WITH RELAXATION AND RESOLVE OF DYSPNEA. IMPROVED TO 95 % ON 3 LPM. Clinic Provider Clinic Provider into see pt with new orders received and carried out. MEDICATION REVIEW AND STATUS FOLLOWUP DONE BY JOVANA ENNIS. PT REPORTS EXTREME FATIGUE WITH BASIC ADL'S. PLAN TO START ORENITRAM FOR PAH. REQUIRES PRIOR AUTH. Discharge Instructions See e-MAR for any mediations given with this visit. Patient education given on disease process. Patient verbalized understanding. Previous labs reviewed. Patient discharged in stable condition with after care instructions . MEDICATION ADMINISTRATION TESTOSTERONE 200 MG IM TO LEFT GLUT VIT B12 1000 MCG IM TO LEFT DELTOID
[2018-07-25 13:39] LABS: Albumin 3.4 g/dL (3.4-5.0); Calcium 8.5 mg/dL (8.5-10.1); Potassium 4.7 mmol/L (3.5-5.1)
[2018-07-25 13:44] LABS: BUN/Creatinine Ratio 14.5; Bilirubin, Total 0.7 mg/dL (0.2-1.0); Total Protein 7.1 g/dL (6.4-8.2)
--- NOTE | 2018-07-27 16:30 | NUR ---
CALLED AT 1400 TO REPORT 'CLUMP OF BLOOD " IN SPUTUM TODAY. NO CHANGE IN DYSPNEA OR STATUS OTHERWISE. CLINIC PROVIDER CONSULTED. ORDERS RECIEVED AND CARRIED OUT. PT NOTIFIED VIA PHONE REGARDING ORDERS RECIEVED. DR VALENZUELA ORDERS HOLD ELIQUIS X 3 DAYS (5 MG PO BID) HOLD 07/27 EVENING, 07/28, AND 07/29, 07/30 MORNING DOSE Z PACK TO [facility] (TAKE DIRECTED) CTA CHEST ON WEDNESDAY AT 1030 TO R/O PNEUMONITIS OR BRONCHITIS
== END | disposition home or self-care (01) ==
LOC: CHF HDHVI 09:41
PROVIDERS: ATTEND Internal Medicine Cardiovascular Disease
DX: E29.1 Testicular hypofunction (principal); D64.9 Anemia, unspecified; K74.1 Hepatic sclerosis; I11.0 Hypertensive heart disease with heart failure; I50.9 Heart failure, unspecified; F32.9 Major depressive disorder, single episode, unspecified; J43.9 Emphysema, unspecified; I27.21 Secondary pulmonary arterial hypertension; R06.00 Dyspnea, unspecified; R53.83 Other fatigue; Z79.899 Other long term (current) drug therapy; Z99.81 Dependence on supplemental oxygen; Z79.01 Long term (current) use of anticoagulants; Z87.891 Personal history of nicotine dependence; Z90.2 Acquired absence of lung [part of]; Z86.711 Personal history of pulmonary embolism
CPT/HCPCS: 36415; 80053; 96372; G0463; J1071; J3420

== ENCOUNTER → 2018-07-29 | Outpatient (CLI) | payer MEDICARE, OTHER ==
[~2018-07-29] MED LIST changes: -CYANOCOBALAMIN (B-12) 1000 MCG/1 ML VIAL IM ONE; -CYANOCOBALAMIN (B-12) 1000 MCG/1 ML VIAL ONE; +IOHEXOL 350 MG/ML 100ML IJ ONE; -TESTOSTERONE CYPIONATE 200 MG/ML 1ML VIAL IM ONE
[2018-07-29 09:47] VITALS: BP 121/70
--- NOTE | 2018-07-29 09:53 | NUR ---
IN TO CLINIC FOR CTA CHEST AFTER HAVING BLOOD TINGED SPUTUM SEVERAL TIMES THIS PAST WEEK. DYSPNEIC AFTER ARRIVAL DUE TO AMBULATION TO CLINIC. REFUSED ASSISTANCE TO CLINIC WITH WHEELCHAIR. OXYGEN IN USE FROM HOME WITH PORTABLE CONCENTRATOR. IV insertion IV access obtained, via clean sterile technique by inserting 20 gauge catheter at after attempt(s)BY MALLIKA ENNIS. IV secured properly. No trauma to site. Patient tolerated procedure well.
--- NOTE | 2018-07-29 10:26 | NUR ---
RAMAH DRAW HAND TO VERIFY WITH DR VALENZUELA TO USE [facility] FOR [facility] TODAY. CREATININE ON 07/25/18 1.10. ADDITIONAL LAB ALREADY DRAWN, UPGRADE TO STAT READING.
[2018-07-29 11:15] VITALS: BP 103/64
--- NOTE | 2018-07-29 11:15 | NUR ---
[place] VERIFIED CREATININE RESULTS WITH DR BURNETT. TOOK FOR CT SCAN AND COMPLETED CT SCAN AND TOLERATED WELL. WITHOUT COMPLAINT. VS WNL PER PT. REMAINS ON 4 LPM OXYGEN VIA OXYGEN TANK. IV TO LEFT AC DCD AND SITE BENIGN POST USE. GIVEN APPOINTMENT REMINDER FOR DR VALENZUELA FOR 08/30/18 AND FOR FOLLOWUP ON08/08/18 IN CHF CLINIC. REPEAT BACK INSTRUCTIONS OBTAINED . Discharge Instructions See e-MAR for any mediations given with this visit. Patient education given on disease process. Patient verbalized understanding. Previous labs reviewed. Patient discharged in stable condition with after care instructions .
== END | disposition home or self-care (01) ==
LOC: CHF HDHVI 09:46
PROVIDERS: ATTEND Internal Medicine Cardiovascular Disease
DX: J43.9 Emphysema, unspecified (principal); R94.4 Abnormal results of kidney function studies; I27.21 Secondary pulmonary arterial hypertension; I11.9 Hypertensive heart disease without heart failure; I70.0 Atherosclerosis of aorta; R91.8 Other nonspecific abnormal finding of lung field
CPT/HCPCS: 36415; 71275; 82565; G0463; Q9967

== ENCOUNTER → 2018-08-05 | Outpatient (CLI) | payer MEDICARE, OTHER ==
[~2018-08-05] MED LIST changes: +CYANOCOBALAMIN (B-12) 1000 MCG/1 ML VIAL IM ONE; +CYANOCOBALAMIN (B-12) 1000 MCG/1 ML VIAL ONE; -IOHEXOL 350 MG/ML 100ML IJ ONE
[2018-08-05 09:45] VITALS: BP 105/65
[2018-08-05 11:15] VITALS: BP 97/65
--- NOTE | 2018-08-05 11:15 | NUR ---
CHF CLINIC Discharge Instructions See e-MAR for any mediations given with this visit. Patient education given on disease process. Patient verbalized understanding. Previous labs reviewed. Patient discharged in stable condition with after care instructions and follow up appointment. NOTE B12 IM L DELTOID ADMIN BY VINNIE LEAHY. PT STARTED ORENATRAM 25MG PO MEDICATION, PT EDUCATION PROVIDED BY JOVANA ENNIS.
[2018-08-05 15:53] LABS: Basophils # (auto) 0.1 uL; Eosinophils # (auto) 0.1 uL; Mean Corpuscular Hemoglobin 26.6 pg (28.0-32.0); Monocytes # (auto) 0.4 uL; White Blood Cell 5.6 10^3/uL (4.4-10.8)
[2018-08-05 15:57] LABS: Hematocrit 38.5 % (41.0-53.0); Hemoglobin 12.4 g/dL (13.5-17.5); Lymphocytes % (auto) 17.8 % (10.0-50.0); Mean Corpuscular Hgb Conc. 32.1 g/dL (32.0-36.0); Mean Corpuscular Volume 82.9 fL (80.0-100.0); Monocytes % (auto) 7.7 % (0.0-12.0); Neutrophils % (auto) 72.5 % (37.0-80.0); Nucleated Red Blood Cells % 0.8 %; Platelet Count (auto) 206 10^3/uL (140-450); Red Blood Cells 4.65 10^6/uL (4.5-5.90)
[2018-08-05 16:03] LABS: BUN/Creatinine Ratio 18.6; Calcium 8.7 mg/dL (8.5-10.1); Potassium 4.5 mmol/L (3.5-5.1)
[2018-08-05 16:14] LABS: Red Cell Distribution Width 22.7 % (11.8-14.3)
== END | disposition home or self-care (01) ==
LOC: CHF HDHVI 09:47
PROVIDERS: ATTEND Internal Medicine Cardiovascular Disease
DX: I27.21 Secondary pulmonary arterial hypertension (principal); D64.9 Anemia, unspecified; I11.0 Hypertensive heart disease with heart failure; I50.9 Heart failure, unspecified; I70.0 Atherosclerosis of aorta; J43.9 Emphysema, unspecified; F32.9 Major depressive disorder, single episode, unspecified; J96.10 Chronic respiratory failure, unspecified whether with hypoxia or hypercapnia; G62.9 Polyneuropathy, unspecified; Z99.81 Dependence on supplemental oxygen; Z79.01 Long term (current) use of anticoagulants; Z79.899 Other long term (current) drug therapy; Z87.891 Personal history of nicotine dependence; Z90.2 Acquired absence of lung [part of]; Z86.711 Personal history of pulmonary embolism
CPT/HCPCS: 36415; 80048; 85025; 96372; G0463; J3420

== ENCOUNTER → 2018-08-12 | Outpatient (CLI) | payer MEDICARE, OTHER ==
[~2018-08-12] MED LIST changes: -CYANOCOBALAMIN (B-12) 1000 MCG/1 ML VIAL IM ONE; -CYANOCOBALAMIN (B-12) 1000 MCG/1 ML VIAL ONE
[2018-08-12 10:20] VITALS: BP 108/63
[2018-08-12 11:15] VITALS: BP 92/61
--- NOTE | 2018-08-12 11:15 | NUR ---
CHF CLINIC Discharge Instructions See e-MAR for any mediations given with this visit. Patient education given on disease process. Patient verbalized understanding. Previous labs reviewed. Patient discharged in stable condition with after care instructions and follow up appointment IN 2 WEEKS. NOTE CARDIODYNAMICS PERFORMED BY GILMAR LEAHY AND REVIEWED WITH PATIENT BY MALLIKA ENNIS. LABS DRAWN BY ELIAS ENNIS.
[2018-08-12 12:05] LABS: Basophils # (auto) 0.1 uL; Basophils % (auto) 1.5 % (0.0-2.0); Eosinophils # (auto) 0.2 uL; Eosinophils % (auto) 3.1 % (0.0-7.0); Hematocrit 37.4 % (41.0-53.0); Hemoglobin 12.2 g/dL (13.5-17.5); Lymphocytes # (auto) 1.2 uL; Lymphocytes % (auto) 20.9 % (10.0-50.0); Mean Corpuscular Hemoglobin 27.1 pg (28.0-32.0); Mean Corpuscular Hgb Conc. 32.7 g/dL (32.0-36.0); Monocytes # (auto) 0.4 uL; Monocytes % (auto) 7.4 % (0.0-12.0); Neutrophils # (auto) 3.7 uL; Neutrophils % (auto) 67.1 % (37.0-80.0); Nucleated Red Blood Cells % 0.2 %; Platelet Count (auto) 173 10^3/uL (140-450); Red Blood Cells 4.51 10^6/uL (4.5-5.90); White Blood Cell 5.6 10^3/uL (4.4-10.8)
[2018-08-12 12:22] LABS: Red Cell Distribution Width 21.5 % (11.8-14.3)
[2018-08-12 12:28] LABS: Potassium 4.1 mmol/L (3.5-5.1)
[2018-08-12 12:34] LABS: Albumin 3.6 g/dL (3.4-5.0); BUN/Creatinine Ratio 18.3; Calcium 8.6 mg/dL (8.5-10.1); Magnesium 2.7 mg/dL (1.6-2.6); Total Protein 7.1 g/dL (6.4-8.2)
== END | disposition home or self-care (01) ==
LOC: CHF HDHVI 10:22
PROVIDERS: ATTEND Internal Medicine Cardiovascular Disease
DX: I27.21 Secondary pulmonary arterial hypertension (principal); D64.9 Anemia, unspecified; E83.40 Disorders of magnesium metabolism, unspecified; I11.0 Hypertensive heart disease with heart failure; I50.9 Heart failure, unspecified
CPT/HCPCS: 36415; 80053; 83735; 83880; 85025; 93701; G0463

== ENCOUNTER → 2018-08-26 | Outpatient (CLI) | payer MEDICARE, OTHER ==
[~2018-08-26] VITALS: Ht 30.5 cm; Wt 79.3 kg
[~2018-08-26] MED LIST changes: +CYANOCOBALAMIN (B-12) 1000 MCG/1 ML VIAL IM ONE; +CYANOCOBALAMIN (B-12) 1000 MCG/1 ML VIAL ONE
[2018-08-26 10:23] VITALS: BP 127/77
[2018-08-26 11:05] VITALS: BP 119/74
--- NOTE | 2018-08-26 11:05 | NUR ---
CHF CLINIC Discharge Instructions See e-MAR for any mediations given with this visit. Patient education given on disease process. Patient verbalized understanding. Previous labs reviewed. Patient discharged in stable condition with after care instructions and follow up appointment IN 2 WEEKS. NOTE B12 IM L DELTOID ADMIN BY GILMAR LEAHY. 6MWT PT COMPLETED 90M DOWN FROM 120M ON 02/28/18.
== END | disposition home or self-care (01) ==
LOC: CHF HDHVI 10:20
PROVIDERS: ATTEND Internal Medicine Cardiovascular Disease
DX: I11.0 Hypertensive heart disease with heart failure (principal); I50.9 Heart failure, unspecified; I27.21 Secondary pulmonary arterial hypertension; J44.9 Chronic obstructive pulmonary disease, unspecified; G35 Multiple sclerosis; R53.83 Other fatigue; J96.10 Chronic respiratory failure, unspecified whether with hypoxia or hypercapnia; F32.9 Major depressive disorder, single episode, unspecified; Z79.899 Other long term (current) drug therapy; Z90.2 Acquired absence of lung [part of]; Z99.81 Dependence on supplemental oxygen; Z79.01 Long term (current) use of anticoagulants; Z87.891 Personal history of nicotine dependence; Z86.711 Personal history of pulmonary embolism
CPT/HCPCS: 94618; 96372; G0463; J3420

== ENCOUNTER → 2018-09-09 | Outpatient (CLI) | payer MEDICARE, OTHER ==
[2018-09-09 10:30] VITALS: BP 109/68
[2018-09-09 11:40] VITALS: BP 104/67
--- NOTE | 2018-09-09 11:40 | NUR ---
IN FOR PAH EVALUATION. REMAINS ON 4 LPM OXYGEN FROM HOME. DYSPNEA REPORTED OVERALL IMPROVED AND PT AFFECT CHEERFUL AND PLEASANT WITHOUT DISTRESS. TEACHING AND ADLS ASSESSED BY JOVANA ENNIS. PT REPORTED ON RECENT APPOINTMENT WITH DR VALENZUELA. LABS DRAWN AND SENT. Discharge Instructions See e-MAR for any mediations given with this visit. Patient education given on disease process. Patient verbalized understanding. Previous labs reviewed. Patient discharged in stable condition with after care instructions and follow up appointment IN 2 WEEKS.
[2018-09-09 16:38] LABS: Basophils # (auto) 0.1 uL; Basophils % (auto) 1.4 % (0.0-2.0); Eosinophils # (auto) 0.1 uL; Eosinophils % (auto) 2.5 % (0.0-7.0); Hematocrit 41.1 % (41.0-53.0); Hemoglobin 13.6 g/dL (13.5-17.5); Lymphocytes # (auto) 0.7 uL; Lymphocytes % (auto) 13.6 % (10.0-50.0); Mean Corpuscular Volume 84.7 fL (80.0-100.0); Monocytes # (auto) 0.3 uL; Monocytes % (auto) 6.1 % (0.0-12.0); Neutrophils # (auto) 3.7 uL; Neutrophils % (auto) 76.4 % (37.0-80.0); Platelet Count (auto) 201 10^3/uL (140-450); Red Blood Cells 4.85 10^6/uL (4.5-5.90); Red Cell Distribution Width 16.9 % (11.8-14.3); White Blood Cell 4.8 10^3/uL (4.4-10.8)
[2018-09-09 16:41] LABS: Potassium 4.4 mmol/L (3.5-5.1)
[2018-09-09 16:49] LABS: Albumin 3.9 g/dL (3.4-5.0); BUN/Creatinine Ratio 18.9; Bilirubin, Total 0.6 mg/dL (0.2-1.0); Magnesium 2.6 mg/dL (1.6-2.6); Total Protein 7.8 g/dL (6.4-8.2)
== END | disposition home or self-care (01) ==
LOC: CHF HDHVI 11:14
PROVIDERS: ATTEND Internal Medicine Cardiovascular Disease
DX: I11.0 Hypertensive heart disease with heart failure (principal); I50.23 Acute on chronic systolic (congestive) heart failure; D64.9 Anemia, unspecified; E55.9 Vitamin D deficiency, unspecified; J44.9 Chronic obstructive pulmonary disease, unspecified; J96.10 Chronic respiratory failure, unspecified whether with hypoxia or hypercapnia; F32.9 Major depressive disorder, single episode, unspecified; G35 Multiple sclerosis; I27.21 Secondary pulmonary arterial hypertension; Z90.2 Acquired absence of lung [part of]; Z99.81 Dependence on supplemental oxygen; Z79.01 Long term (current) use of anticoagulants; Z79.899 Other long term (current) drug therapy; Z87.891 Personal history of nicotine dependence; Z86.711 Personal history of pulmonary embolism
CPT/HCPCS: 36415; 80053; 82306; 83735; 83880; 85025; 96372; G0463; J3420

== ENCOUNTER → 2018-09-09 | Outpatient (CLI) | payer MEDICARE, OTHER ==
[~2018-09-09] MED LIST changes: -CYANOCOBALAMIN (B-12) 1000 MCG/1 ML VIAL IM ONE; -CYANOCOBALAMIN (B-12) 1000 MCG/1 ML VIAL ONE
== END | disposition home or self-care (01) ==
LOC: OP 12:03
PROVIDERS: ATTEND Internal Medicine Pulmonary Disease
DX: I27.20 Pulmonary hypertension, unspecified (principal)
CPT/HCPCS: 36600; 82805

== ENCOUNTER → 2018-09-16 | Outpatient (CLI) | payer MEDICARE, OTHER ==
[2018-09-16 10:45] VITALS: BP 100/60
--- NOTE | 2018-09-16 11:35 | NUR ---
WITNESSED AND ASSISTED SYNCOPAL EPISODE ONE MINUTE INTO 6 MINUTE WALK TEST. OXYGEN IN USE BEFORE AND AFTER SYNCOPAL EPISODE. PT FOUND TO HAVE DUSKY FACIAL FEATURES (NOSE, CHEEKS AND LIPS) WHILE LAYING ON FLOOR WITH HEAD BEING HELD UP BY VINNIE LEAHY. EYES OPEN BUT MINIMALLY RESPONSIVE, PUPILS INITIALLY DILATED. MORE RESPONSIVE WITH STERNAL RUB AND BREATHING ADEQUATE WITH OXYGEN UP TO [address] BURNETT AND MULTIPLE STAFF MEMBERS RESPONDED. PT STATES "WHAT HAPPENED"?. RESPONDED APPROPRIATELY TO SURROUNDINGS. DUSKY FACIAL FEATURES RESOLVED TO MORE PINK-PALE, ASSISTED TO WHEELCHAIR AND VITALS OBTAINED. OXYGEN REDUCED TO 5 LPM . RETURNED TO CLINIC AND ASSISTED TO RECLINER. PT MADE TRANSFER INDEPENDENTLY WITH STAND BY ASSISTANCE. Addendum: 09/16/18 at 1204 by ELIAS WOODARD RN WI AMEND ABOVE NOTE :NEAR SYNCOPAL EPISODE, PT DID NOT LOSE CONSCIOUSNESS. NO INJURY OCCURRED
[2018-09-16 12:45] VITALS: BP 100/63
--- NOTE | 2018-09-16 12:45 | NUR ---
CHF CLINIC Discharge Instructions See e-MAR for any mediations given with this visit. Patient education given on disease process. Patient verbalized understanding. Previous labs reviewed. Patient discharged in stable condition with after care instructions and follow up appointment. NOTE CARDIODYNAMICS PERFORMED BY GILMAR LEAHY AND REVIEWED WITH PATIENT BY ELIAS ENNIS 6 MWT PERFORMED BY GILMAR LEAHY, PATIENT UNABLE TO COMPLETE EXAM. PATIENT O2 AND BP RETURNED TO BASELINE BEFORE DISCHARGE, PATIENT WALKED TO CAR BY STAFF.
== END | disposition home or self-care (01) ==
LOC: CHF HDHVI 10:28
PROVIDERS: ATTEND Internal Medicine Cardiovascular Disease
DX: J43.9 Emphysema, unspecified (principal); I27.21 Secondary pulmonary arterial hypertension; R91.8 Other nonspecific abnormal finding of lung field; R91.1 Solitary pulmonary nodule
CPT/HCPCS: 71046; 93701; 94618; G0463

== ENCOUNTER → 2018-09-23 | Outpatient (CLI) | payer MEDICARE, OTHER ==
[2018-09-23 10:30] VITALS: BP 103/67
--- NOTE | 2018-09-23 10:30 | NUR ---
CHF PT ARRIVED TO THE CHF CLINIC A/O X 3 PT SON AT THE BEDSIDE . MED REC COMPLETED, PT C/O LIGHTHEADNESS. ORENITRAM INCREASED 0.875 TID, FOLLOW UP NEXT WEDNESDAY
[2018-09-23 11:55] VITALS: BP 109/68
--- NOTE | 2018-09-23 11:55 | NUR ---
Discharge Instructions See e-MAR for any mediations given with this visit. Patient education given on disease process. Patient verbalized understanding. Previous labs reviewed. Patient discharged in stable condition with after care instructions and follow up appoinTMENT.
== END | disposition home or self-care (01) ==
LOC: CHF HDHVI 10:17
PROVIDERS: ATTEND Internal Medicine Cardiovascular Disease
DX: I27.21 Secondary pulmonary arterial hypertension (principal)
CPT/HCPCS: G0463

== ENCOUNTER → 2018-09-29 | Outpatient (CLI) | payer MEDICARE, OTHER ==
[~2018-09-29] VITALS: Ht 1 cm; Wt 0.5 kg
[~2018-09-29] MED LIST changes: +CYANOCOBALAMIN (B-12) 1000 MCG/1 ML VIAL IM ONE; +CYANOCOBALAMIN (B-12) 1000 MCG/1 ML VIAL ONE
[2018-09-29 11:30] VITALS: BP 115/83
--- NOTE | 2018-09-29 11:30 | NUR ---
IN FOR PAH FOLLOWUP WITH SON IN ATTENDANCE. HOME OXYGEN IN USE AT 4 LPM. HYPOXIC WITH ACTIVITY. REQUIRES REST AND PURSED LIP BREATHING. MEDICATION REVIEW COMPLETED BY JOVANA ENNIS. PT TO CONTINUE DOSE OF ORENITRAM 0.875 THEN INCREASE TO 1 MG IN 1 WEEK AND FOLLOWUP POST IN CLINIC. REPEAT BACK INSTRUCTIONS OBTAINED. DISCHARGED TO SELF CARE WITH SON IN ATTENDANCE. MEDICATION ADMINISTRATION VIT B12 1000 MCG IM AT 1109 TO RIGHT DELTOID
[2018-09-29 14:25] VITALS: BP 115/83
== END | disposition home or self-care (01) ==
LOC: CHF HDHVI 10:27
PROVIDERS: ATTEND Internal Medicine Cardiovascular Disease
DX: I25.10 Atherosclerotic heart disease of native coronary artery without angina pectoris (principal); I11.0 Hypertensive heart disease with heart failure; I50.22 Chronic systolic (congestive) heart failure; I27.21 Secondary pulmonary arterial hypertension; J43.9 Emphysema, unspecified; J96.10 Chronic respiratory failure, unspecified whether with hypoxia or hypercapnia; F32.9 Major depressive disorder, single episode, unspecified; Z90.2 Acquired absence of lung [part of]; Z79.899 Other long term (current) drug therapy; Z79.01 Long term (current) use of anticoagulants; Z87.891 Personal history of nicotine dependence; Z99.81 Dependence on supplemental oxygen; Z86.711 Personal history of pulmonary embolism
CPT/HCPCS: 96372; G0463; J3420; 93701; 94618

== ENCOUNTER → 2018-10-13 | Outpatient (CLI) | payer MEDICARE, OTHER ==
[~2018-10-13] MED LIST changes: -CYANOCOBALAMIN (B-12) 1000 MCG/1 ML VIAL IM ONE
[2018-10-13 10:35] VITALS: BP 119/70
[2018-10-13 12:05] VITALS: BP 127/79
[2018-10-13 15:51] LABS: Basophils # (auto) 0 uL; Eosinophils # (auto) 0.1 uL; Eosinophils % (auto) 1.5 % (0.0-7.0); Hematocrit 40.6 % (41.0-53.0); Hemoglobin 13.2 g/dL (13.5-17.5); Lymphocytes # (auto) 0.6 uL; Lymphocytes % (auto) 13.6 % (10.0-50.0); Mean Corpuscular Hgb Conc. 32.5 g/dL (32.0-36.0); Mean Corpuscular Volume 82.8 fL (80.0-100.0); Monocytes # (auto) 0.4 uL; Monocytes % (auto) 9.1 % (0.0-12.0); Neutrophils # (auto) 3.4 uL; Neutrophils % (auto) 74.8 % (37.0-80.0); Nucleated Red Blood Cells % 0.2 %; Platelet Count (auto) 152 10^3/uL (140-450); Red Cell Distribution Width 14.4 % (11.8-14.3); White Blood Cell 4.5 10^3/uL (4.4-10.8)
[2018-10-13 15:54] LABS: Albumin 3.8 g/dL (3.4-5.0); Magnesium 2.7 mg/dL (1.6-2.6); Potassium 4.1 mmol/L (3.5-5.1)
[2018-10-13 15:59] LABS: BUN/Creatinine Ratio 13.9; Bilirubin, Total 0.5 mg/dL (0.2-1.0); Total Protein 7.7 g/dL (6.4-8.2)
== END | disposition home or self-care (01) ==
LOC: CHF HDHVI 10:27
PROVIDERS: ATTEND Internal Medicine Cardiovascular Disease
DX: D64.9 Anemia, unspecified (principal); I74.9 Embolism and thrombosis of unspecified artery; I25.10 Atherosclerotic heart disease of native coronary artery without angina pectoris; R00.2 Palpitations; R09.02 Hypoxemia; I11.0 Hypertensive heart disease with heart failure; I50.22 Chronic systolic (congestive) heart failure; F32.9 Major depressive disorder, single episode, unspecified; J43.9 Emphysema, unspecified; Z99.81 Dependence on supplemental oxygen; Z90.2 Acquired absence of lung [part of]; Z79.01 Long term (current) use of anticoagulants; Z87.891 Personal history of nicotine dependence
CPT/HCPCS: 36415; 80053; 83735; 83880; 85025; 93701; 94618; 96372; G0463; J3420

== ENCOUNTER → 2018-10-27 | Outpatient (CLI) | payer MEDICARE, OTHER ==
[~2018-10-27] MED LIST changes: +CYANOCOBALAMIN (B-12) 1000 MCG/1 ML VIAL IM ONE
[2018-10-27 10:30] VITALS: BP 101/50
[2018-10-27 11:44] VITALS: BP 109/61
--- NOTE | 2018-10-27 11:44 | NUR ---
IN FOR PAH FOLLOWUP. WITHOUT DISTRESS. ON OXYGEN AT 4 LPM CONTINUOUS FROM HOME. PT HAS SLIGHT SWELLING IN ANKLES.PT REPORTS FEELING WELL AND HAVING AN INCREASE IN OVERALL ENERGY. LABS REVIEWED AND FOLLOWED UP WITH CLINIC PROVIDER, MEDICATED PER ORDER. DISCHARGED TO SELF CARE IN NO DISTRESS OR DISCOMFORT. FOLLOWUP APPOINTMENT IN 2 WEEKS. MEDICATION ADMINISTRATION VIT B12 1000 MCG IM TO LEFT DELTOID AT [address] VALENZUELA: LASIX 20 MG 1 TAB PO DAILY PRN SWELLING KDUR 10 MEQ PO DAILY, WITH LASIX ONLY
== END | disposition home or self-care (01) ==
LOC: CHF HDHVI 10:23
PROVIDERS: ATTEND Internal Medicine Cardiovascular Disease
DX: I25.10 Atherosclerotic heart disease of native coronary artery without angina pectoris (principal); I11.0 Hypertensive heart disease with heart failure; I50.22 Chronic systolic (congestive) heart failure; I27.21 Secondary pulmonary arterial hypertension; J96.11 Chronic respiratory failure with hypoxia; J43.9 Emphysema, unspecified; F32.9 Major depressive disorder, single episode, unspecified; J96.12 Chronic respiratory failure with hypercapnia; Z79.899 Other long term (current) drug therapy; Z90.2 Acquired absence of lung [part of]; Z79.01 Long term (current) use of anticoagulants; Z87.891 Personal history of nicotine dependence; Z99.81 Dependence on supplemental oxygen
CPT/HCPCS: 93701; 96372; G0463

== ENCOUNTER 2018-11-01 22:01 | Inpatient (IN) | payer MEDICARE, OTHER ==
[~2018-11-01] VITALS: Ht 180.3 cm; Wt 75.3 kg
[~2018-11-01 22:01] MED LIST changes: -CYANOCOBALAMIN (B-12) 1000 MCG/1 ML VIAL IM ONE; -CYANOCOBALAMIN (B-12) 1000 MCG/1 ML VIAL ONE
[2018-11-01 22:59] LABS: Eosinophils # (auto) 0 uL; Eosinophils % (auto) 0.2 % (0.0-7.0); Hemoglobin 12.3 g/dL (13.5-17.5); Lymphocytes # (auto) 0.5 uL; Mean Corpuscular Volume 80.1 fL (80.0-100.0); Monocytes # (auto) 0.5 uL; Nucleated Red Blood Cells % 0.1 %; Red Cell Distribution Width 14.8 % (11.8-14.3); White Blood Cell 8.7 10^3/uL (4.4-10.8)
[2018-11-01 23:03] LABS: Basophils # (auto) 0 uL; Basophils % (auto) 0.4 % (0.0-2.0); Hematocrit 37.1 % (41.0-53.0); Lymphocytes % (auto) 5.5 % (10.0-50.0); Mean Corpuscular Hemoglobin 26.6 pg (28.0-32.0); Mean Corpuscular Hgb Conc. 33.2 g/dL (32.0-36.0); Neutrophils # (auto) 7.7 uL; Neutrophils % (auto) 87.9 % (37.0-80.0); Platelet Count (auto) 166 10^3/uL (140-450); Red Blood Cells 4.63 10^6/uL (4.5-5.90)
[2018-11-01 23:14] LABS: INR 1.16 (0.9-1.15); Partial Thromboplastin Time 31.4 sec (23.64-32.05)
[2018-11-01] MEDS ORDERED: IPRATROPIUM BROM 0.5 MG/2.5ML INH SOL NEB ONE (23:15)
[2018-11-01] MEDS ORDERED: ALBUTEROL SULF 2.5 MG/0.5ML(0.5%) NEB SOLN NEB ONE (23:15)
[2018-11-01] MEDS ORDERED: methylPREDNISolone SOD SUCC 125 MG/2 ML VL IV ONE (23:15)
[2018-11-01 23:18] LABS: Calcium 7.9 mg/dL (8.5-10.1); Chloride 106 mmol/L (98-107); Potassium 4.1 mmol/L (3.5-5.1); Sodium 140 mmol/L (136-145)
[2018-11-01 23:21] LABS: Alanine Aminotransferase 15 U/L (16-61); Albumin 3.7 g/dL (3.4-5.0); Anion Gap 10 (5-15); Aspartate Aminotransferase 11 U/L (15-37); BUN/Creatinine Ratio 16.8; Blood Urea Nitrogen 21 mg/dL (7-18); Carbon Dioxide 24 mmol/L (21-32); GFR African American 74 mL/min; GFR Non-African American 61 mL/min; Glucose 150 mg/dL (74-106)
[2018-11-01 23:37] LABS: Alkaline Phosphatase 49 U/L (45-117); Bilirubin, Total 0.5 mg/dL (0.2-1.0); Total Protein 7.3 g/dL (6.4-8.2)
[2018-11-02] MEDS ORDERED: FUROSEMIDE 20 MG/2 ML VIAL IV ONE (00:30)
[2018-11-02] MEDS ORDERED: HYDROcodone-ACET 5/325MG TAB PO PRN (04:30)
[2018-11-02] MEDS ORDERED: TEMAZEPAM 15 MG CAP PO PRN (04:30)
[2018-11-02] MEDS ORDERED: ACETAMINOPHEN 325 MG TAB PO PRN (04:30)
[2018-11-02] MEDS: ALBUTEROL SULF 2.5 MG/0.5ML(0.5%) NEB SOLN NEB SCH ×3 (05:40→18:32)
[2018-11-02] MEDS: IPRATROPIUM BROM 0.5 MG/2.5ML INH SOL NEB SCH ×3 (05:40→18:31)
[2018-11-02] MEDS ORDERED: cefTRIAXone 1GM/50ML D5W 50 ML IV ONE (06:00)
[2018-11-02] MEDS: GABAPENTIN 300 MG CAP PO SCH ×3 (06:00→22:21)
--- NOTE | 2018-11-02 06:25 | NUR ---
Respiratory note: TOOK PATIENT OFF SIMPLE MASK AND PLACED ON 4L OXYMIZER. SPO2 93%
[2018-11-02 06:52] VITALS: BP 102/60
[2018-11-02] MEDS ORDERED: AZITHROMYCIN 500MG/ 250ML 250 ML IV ONE (07:00)
[2018-11-02] MEDS: SILDENAFIL CITRATE 20 MG TAB PO SCH ×3 (07:58→22:19)
[2018-11-02] MEDS: predniSONE 5 MG TAB PO SCH (10:05)
[2018-11-02] MEDS: FUROSEMIDE 20 MG TAB PO SCH (10:05)
[2018-11-02] MEDS: FAMOTIDINE 20 MG TAB PO SCH ×2 (10:06→22:20)
[2018-11-02] MEDS ORDERED: SODIUM CHLORIDE 0.9% 500 ML IV ONE (11:00)
[2018-11-02] MEDS ORDERED: SODIUM CHLORIDE 0.9% 1,000 ML IV ONE (16:15)
[2018-11-02] MEDS: SODIUM CHLORIDE 0.9% 1,000 ML IV SCH (16:22)
[2018-11-02 18:20] VITALS: BP 99/60
[2018-11-02 21:30] VITALS: BP 91/58
[2018-11-02] MEDS: AMITRIPTYLINE HCL 25 MG TAB PO SCH (22:21)
[2018-11-02] MEDS: CARVEDILOL 3.125 MG TAB PO SCH (22:21)
[2018-11-03] VITALS (8 sets, daily range): BP systolic 79–109; BP diastolic 57–69
[2018-11-03] MEDS: ALBUTEROL SULF 2.5 MG/0.5ML(0.5%) NEB SOLN NEB SCH ×4 (00:18→19:25)
[2018-11-03] MEDS: IPRATROPIUM BROM 0.5 MG/2.5ML INH SOL NEB SCH ×4 (00:18→19:25)
--- NOTE | 2018-11-03 01:08 | NUR ---
Opening Shift Note Assumed care of patient, awake and alert. No S/S of distress/SOB or pain. Instructed on POC and to call for assist PRN, will continue to monitor for changes Q1hr and PRN.
[2018-11-03] MEDS: SODIUM CHLORIDE 0.9% 1,000 ML IV SCH ×3 (02:15→22:15)
[2018-11-03] MEDS: GABAPENTIN 300 MG CAP PO SCH ×3 (06:16→22:19)
[2018-11-03] MEDS: cefTRIAXone 1GM/50ML D5W 50 ML IV SCH (06:16)
[2018-11-03] MEDS: AZITHROMYCIN 500MG/ 250ML 250 ML IV SCH (07:11)
[2018-11-03] MEDS: SILDENAFIL CITRATE 20 MG TAB PO SCH ×3 (07:11→20:34)
[2018-11-03 07:17] LABS: Basophils # (auto) 0 uL; Eosinophils # (auto) 0 uL; Eosinophils % (auto) 0.1 % (0.0-7.0); Hemoglobin 12.4 g/dL (13.5-17.5); Lymphocytes # (auto) 0.5 uL; Lymphocytes % (auto) 5.5 % (10.0-50.0); Mean Corpuscular Hgb Conc. 33.6 g/dL (32.0-36.0); Mean Corpuscular Volume 80.4 fL (80.0-100.0); Monocytes # (auto) 0.6 uL; Monocytes % (auto) 6.8 % (0.0-12.0); Neutrophils # (auto) 8.2 uL; Neutrophils % (auto) 87.6 % (37.0-80.0); Platelet Count (auto) 159 10^3/uL (140-450); Red Cell Distribution Width 14.9 % (11.8-14.3); White Blood Cell 9.4 10^3/uL (4.4-10.8)
[2018-11-03 07:28] LABS: BUN/Creatinine Ratio 29.2; Calcium 8.7 mg/dL (8.5-10.1); Potassium 4.4 mmol/L (3.5-5.1)
[2018-11-03] MEDS: FAMOTIDINE 20 MG TAB PO SCH ×2 (09:05→22:19)
[2018-11-03] MEDS: predniSONE 5 MG TAB PO SCH (09:05)
[2018-11-03] MEDS ORDERED: SODIUM CHLORIDE 0.9% 500 ML IV ONE (09:32)
--- NOTE | 2018-11-03 09:32 | NUR ---
Patient's blood pressure decreased to 79/58. Patient is asymptomatic and denies s/s of distress, CP, SOB. Patient has MIRAMONTES. Spoke with Dr. Llamas. Per MD, administer 500 mL NS bolus.
[2018-11-03] MEDS: FUROSEMIDE 20 MG TAB PO SCH (10:00)
[2018-11-03] MEDS: CARVEDILOL 3.125 MG TAB PO SCH ×2 (10:00→22:19)
--- NOTE | 2018-11-03 10:04 | NUR ---
Spoke with Derik from nuclear medicine. Isotope not available to complete VQ scan today, VQ scan will be completed tomorrow.
--- NOTE | 2018-11-03 18:18 | NUR ---
POM MEDICATIONS CHECKED IN
--- NOTE | 2018-11-03 19:24 | NUR ---
Change of shift given to warehouse shift supervisor RN. No distress noted.
--- NOTE | 2018-11-03 19:54 | NUR ---
Opening Note Assumed pt care from day shift nurse. Pt is a/px4 with no s/s of distress. Pt is currently laying in bed. Discussed POC with pt. Safety measures maintained with side rails up, bed in lowest position and call light within reach. Will continue to monitor for changes q1hr and prn.
--- NOTE | 2018-11-03 21:57 | NUR ---
Pt refused Orenitram Pt stated that he usually takes medication with an additional unknown dose of the same medication, which he does not currently have. Therefore pt stated he did not want to take medication while in hospital. Pharmacy called and was informed on pt's decision due to question regarding dosage of medication. Will report to day shift to relay information to physician to clear up any possible confusion. Pharmacy sent medication to floor, placed in the pt cassette in pyxis Will continue to monitor pt as a result of not taking medication.
[2018-11-03] MEDS: TREPROSTINIL PO SCH (22:00)
[2018-11-03] MEDS ORDERED: ADEMPAS 2 MG PO SCH (22:00)
[2018-11-03] MEDS: AMITRIPTYLINE HCL 25 MG TAB PO SCH (22:19)
[2018-11-03] MEDS: ADEMPAS 2.5 MG PO SCH (22:37)
--- NOTE | 2018-11-03 22:50 | NUR ---
SYEDA Reported Elevated HR SYEDA stated that the pt's HR was in the 120s. Assessed pt, he had just came back to bed from having a BM at the bedside commode. Pt stated that he felt SOB and was currently sitting in the tripod position. Instructed the pt to take some deep breaths, assessed his O2 status, it was at 5L. Turned down the O2 to 3L. After turning down the oxygen pt stated that he felt "much better". Educated pt on COPD and receiving too much oxygen. Pt verbalized understanding. Reassessed pt, o2 saturation of 96% on 3L, HR of 98, and DATA INTEGRITY CONSULTANT of 116/84. Will continue to monitor for changes.
[2018-11-04] MEDS: IPRATROPIUM BROM 0.5 MG/2.5ML INH SOL NEB SCH ×4 (00:01→18:24)
[2018-11-04] MEDS: ALBUTEROL SULF 2.5 MG/0.5ML(0.5%) NEB SOLN NEB SCH ×4 (00:01→18:24)
[2018-11-04] MEDS: SODIUM CHLORIDE 0.9% 1,000 ML IV SCH ×2 (00:42→18:15)
[2018-11-04 05:48] VITALS: BP 85/53
--- NOTE | 2018-11-04 05:57 | NUR ---
Low BP and Request Breathing Tx VALET ATTENDANT reported that the pt had a low BP of 85/53. Rechecked pt and repositioned pt, BP is now 102/65. Pt states he feels fine except for some tighness in his lungs when breathing. Will continue to monitor and page RT for Tx.
[2018-11-04] MEDS: GABAPENTIN 300 MG CAP PO SCH ×3 (05:59→21:46)
[2018-11-04] MEDS: cefTRIAXone 1GM/50ML D5W 50 ML IV SCH (05:59)
[2018-11-04] MEDS: ADEMPAS 2.5 MG PO SCH ×3 (06:01→22:10)
[2018-11-04] MEDS: AZITHROMYCIN 500MG/ 250ML 250 ML IV SCH (06:38)
[2018-11-04 08:30] VITALS: BP 118/82
[2018-11-04] MEDS: SILDENAFIL CITRATE 20 MG TAB PO SCH ×3 (08:33→20:57)
[2018-11-04 09:00] VITALS: BP 113/83
[2018-11-04] MEDS ORDERED: OPSUMIT 10 MG PO SCH (10:00)
[2018-11-04] MEDS: TREPROSTINIL PO SCH (10:00)
[2018-11-04] MEDS: FUROSEMIDE 20 MG TAB PO SCH (10:00)
[2018-11-04] MEDS: CARVEDILOL 3.125 MG TAB PO SCH ×2 (10:24→21:46)
[2018-11-04] MEDS: FAMOTIDINE 20 MG TAB PO SCH ×2 (10:24→21:46)
[2018-11-04] MEDS: predniSONE 5 MG TAB PO SCH (10:24)
--- NOTE | 2018-11-04 11:09 | NUR ---
Spoke with Bandar TIWARI. Per LEACH RUNNER, patient can be discharged from cardiology's perspective.
[2018-11-04] MEDS ORDERED: APIXABAN 5 MG TAB PO SCH (12:00)
--- NOTE | 2018-11-04 12:26 | NUR ---
Nutrition Assessment Notes please see attached link for complete assessment Est. Needs BW 75 [id number] kcal (25-30 kcal/kgBW), 75-90 gms pro (1.0-1.2 gms/kgBW). Will continue to monitor pertinent labs and reassess nutrient need prn Addendum: 11/04/18 at [address] Amended: Links added.
[2018-11-04 13:00] VITALS: BP 96/60
--- NOTE | 2018-11-04 13:09 | NUR ---
VQ scan results shown to Dr. Llamas. Received orders to have patient resume Eliquis as ordered. No new orders received.
[2018-11-04 17:00] VITALS: BP 119/74
--- NOTE | 2018-11-04 19:24 | NUR ---
Change of shift given to restaurant shift supervisor RN. No distress noted.
--- NOTE | 2018-11-04 19:49 | NUR ---
Opening Note Assumed pt care from day shift nurse. Pt is a/ox4 with no s/s of distress or SOB. Pt stated that he "feels much better" compared to yesterday. Discussed POC with pt and the high possibility of d/c in the morning. Pt verbalized understanding. Discussed oxygenation level with pt; he stated that RT recently placed him on 3L NC and he is not experiencing any SOB. Told pt that we would monitor the O2 need throughout the night. Pt verbalized understanding. Safety measures maintained with bed in lowest position, fernanda light within reach and side rails up. Will continue to monitor for changes q1hr and prn.
--- NOTE | 2018-11-04 21:40 | NUR ---
Spoke to Pharmacy About Missing Medication Pt is missing additional dosages of POM Adempas. Pharmacy stated that they would provide the medication doses and report back to me. Will follow up.
[2018-11-04] MEDS: AMITRIPTYLINE HCL 25 MG TAB PO SCH (21:46)
[2018-11-04] MEDS: APIXABAN 5 MG TAB PO SCH (21:46)
[2018-11-04 21:59] VITALS: BP 103/58
--- NOTE | 2018-11-04 22:07 | NUR ---
Adempas Provided Pharmacy provided the additional doses of adempas to the [facility].
[2018-11-05] MEDS: IPRATROPIUM BROM 0.5 MG/2.5ML INH SOL NEB SCH ×3 (01:11→11:38)
[2018-11-05] MEDS: ALBUTEROL SULF 2.5 MG/0.5ML(0.5%) NEB SOLN NEB SCH ×3 (01:12→11:38)
--- NOTE | 2018-11-05 03:26 | NUR ---
Pt Period of Confusion Pt came from room to hallway stating "where the heck am I?". Pt stated that he did not know where he was at, or why he was here. Pt looked flushed and slightly short of breath. Myself and another nurse redirected the pt back into his room where he almost slid to the floor. Guided the pt into a chair, assessed the pt's oxygenation level as well as O2 L level. Pt was saturating on 1.5L at 69%. We then increased the O2 to 4 L. Encouraged the pt to take deep breaths and reassured the pt of where he is and that he was safe. After 5 minutes of the increased oxygen and deep breaths, the pt's O2 level went to 92%. Pt regained some sense of where he was at and why he was here. Pt then stated that he remembered taking off his oxygen and trying to turn the oxygen back up. Guided the pt back to his bed where he stated he felt better and no longer confused or SOB. Will continue to monitor pt for s/s of SOB as well as s/s of decreased oxygenation.
[2018-11-05] MEDS: SODIUM CHLORIDE 0.9% 1,000 ML IV SCH (03:47)
--- NOTE | 2018-11-05 04:11 | NUR ---
Pt Re-Assessment Pt's O2 saturation is above 90% consistently when O2 is at 3.5L. HR is 94-105 bpm. Pt states that he still is confused as to what occurred. Re-directed pt and provided education regarding low oxygenation. Pt verbalized understanding but stated that he still is slightly confused. Will continue to monitor oxygen levels and reassure pt of safety and reorient him.
[2018-11-05 04:55] VITALS: BP 99/67
[2018-11-05] MEDS: cefTRIAXone 1GM/50ML D5W 50 ML IV SCH (05:33)
[2018-11-05] MEDS: GABAPENTIN 300 MG CAP PO SCH (05:33)
[2018-11-05] MEDS: ADEMPAS 2.5 MG PO SCH (05:34)
[2018-11-05] MEDS: AZITHROMYCIN 500MG/ 250ML 250 ML IV SCH (06:19)
[2018-11-05 08:00] VITALS: BP 103/58
--- NOTE | 2018-11-05 08:00 | NUR ---
ASSESSMENT NOTE PATIENT IS ALERT ORIENTED X4, SITTING AT THE SIDE OF THE BED, OXYGEN 3 L NC, SELF REPOSITION, ABLE TO VERBALIS HIS DEMANDS, APIN 0/10, AMBULATE NEEDED, CALL LIGHT WITHIN REACH.
[2018-11-05] MEDS: SILDENAFIL CITRATE 20 MG TAB PO SCH (08:57)
[2018-11-05] MEDS: APIXABAN 5 MG TAB PO SCH (08:57)
[2018-11-05] MEDS: FAMOTIDINE 20 MG TAB PO SCH (08:57)
[2018-11-05] MEDS: FUROSEMIDE 20 MG TAB PO SCH (08:58)
[2018-11-05] MEDS: predniSONE 5 MG TAB PO SCH (08:58)
[2018-11-05 09:00] VITALS: BP 108/69
--- NOTE | 2018-11-05 09:40 | NUR ---
DR HOLMAN AT BED SIDE WITH ALL THE DISCHARGE INSTRUCTION, PATIEN VERBALIS UNDERSTANDING
[2018-11-05] MEDS: CARVEDILOL 3.125 MG TAB PO SCH (10:00)
[2018-11-05 10:55] VITALS: BP 108/69
[2018-11-05 11:13] VITALS: BP 108/69
--- NOTE | 2018-11-05 11:45 | NUR ---
FAMILY AT BED SIDE WITH HOME OXYGEN
--- NOTE | 2018-11-05 11:46 | NUR ---
PATIENT IS ON BREATHING TREATMENT
--- NOTE | 2018-11-05 12:01 | NUR ---
Discharge instructions given as ordered. Encourage to follow up with PMD as instructed. All questions and concerns addressed. Patient verbalized understanding. Medication reconciliation form completed and copy given to patient. Home medications held in Pharmacy returned to patient, IV removed with catheter intact, pressure dressing applied. Telemetry unit returned to ICU. Patient taken to vehicle via wheelchair with all personal belongings, accompanied by staff and family member. No distress noted at time of departure.
== END 2018-11-05 12:00 | disposition home or self-care (01) | DRG 193 ==
LOC: EDBD 22:01 → EDUNIT# 22:01 → ER 22:04 → OVERFLOW 22:05 → TELE-CENTR 11-02 18:05
PROVIDERS: ADMIT Nurse Practitioner; ATTEND Family Medicine
DX: J18.9 Pneumonia, unspecified organism (principal); J96.20 Acute and chronic respiratory failure, unspecified whether with hypoxia or hypercapnia; I50.32 Chronic diastolic (congestive) heart failure; N17.9 Acute kidney failure, unspecified; I11.0 Hypertensive heart disease with heart failure; I27.20 Pulmonary hypertension, unspecified; G35 Multiple sclerosis; J84.10 Pulmonary fibrosis, unspecified; G62.9 Polyneuropathy, unspecified; J43.9 Emphysema, unspecified; F32.9 Major depressive disorder, single episode, unspecified; Z86.711 Personal history of pulmonary embolism; Z79.01 Long term (current) use of anticoagulants; Z90.2 Acquired absence of lung [part of]; Z99.81 Dependence on supplemental oxygen; Z79.899 Other long term (current) drug therapy
CPT/HCPCS: 36415; 71045; 78582; 80048; 80053; 82962; 83880; 84484; 85025; 85379; 85610; 85730; 87040; 93005; 93306; 94640; G0378; J0696

== ENCOUNTER → 2018-11-10 | Outpatient (CLI) | payer MEDICARE, OTHER ==
--- NOTE | 2018-11-10 10:15 | NUR ---
PT. TO PAH CLINIC FOR EVAL. AND [place] POST HOSP. FOR PNEUMONIA. PT. IS ON TRIPLE THERY FOR PAH, AND 02 DEPENDENT. PT. STATES IS FEELING A LITTLE BETTER EACH DAY POST HOSP. AND IS SCHEDULED TO UPTITRATE HIS ORENATRAM TO 1.375 MG THIS SAT. LABS ORDERSED AND DRAWN. SEE NSG ASSESS.
[2018-11-10 10:20] VITALS: BP 113/55
[2018-11-10 11:15] VITALS: BP 108/56
--- NOTE | 2018-11-10 11:15 | NUR ---
Discharge Instructions See e-MAR for any mediations given with this visit. Patient education given on disease process. Patient verbalized understanding. Previous labs reviewed. Patient discharged in stable condition with after care instructions and follow up appointment. PT. TO RTC IN 2 WEEKS OR PRN MED TITRATION EFFECTS HEMODYNAMICS.
--- NOTE | 2018-11-10 11:16 | NUR ---
NOTE: CHF CLINIC CHARGE ONLY, LABS
[2018-11-10 12:06] LABS: Basophils # (auto) 0 uL; Eosinophils # (auto) 0.1 uL; Hemoglobin 11.8 g/dL (13.5-17.5); Lymphocytes # (auto) 0.7 uL; Monocytes # (auto) 0.3 uL; White Blood Cell 4.1 10^3/uL (4.4-10.8)
[2018-11-10 12:07] LABS: Basophils % (auto) 0.8 % (0.0-2.0); Eosinophils % (auto) 3.1 % (0.0-7.0); Lymphocytes % (auto) 15.9 % (10.0-50.0); Mean Corpuscular Hemoglobin 26.1 pg (28.0-32.0); Mean Corpuscular Hgb Conc. 32.7 g/dL (32.0-36.0); Neutrophils % (auto) 72.2 % (37.0-80.0); Platelet Count (auto) 181 10^3/uL (140-450)
[2018-11-10 12:25] LABS: Potassium 4.2 mmol/L (3.5-5.1)
[2018-11-10 12:40] LABS: Albumin 3.3 g/dL (3.4-5.0); Bilirubin, Total 0.4 mg/dL (0.2-1.0); Calcium 8.3 mg/dL (8.5-10.1)
== END | disposition home or self-care (01) ==
LOC: CHF HDHVI 10:27
PROVIDERS: ATTEND Internal Medicine Cardiovascular Disease
DX: D64.9 Anemia, unspecified (principal); I11.0 Hypertensive heart disease with heart failure; I50.9 Heart failure, unspecified; I25.10 Atherosclerotic heart disease of native coronary artery without angina pectoris; I27.21 Secondary pulmonary arterial hypertension
CPT/HCPCS: 36415; 80053; 83880; 85025; G0463

== ENCOUNTER → 2018-11-24 | Outpatient (CLI) | payer MEDICARE, OTHER ==
[~2018-11-24] VITALS: Ht 30.5 cm; Wt 76.4 kg
[~2018-11-24] MED LIST changes: +CYANOCOBALAMIN (B-12) 1000 MCG/1 ML VIAL IM ONE; +CYANOCOBALAMIN (B-12) 1000 MCG/1 ML VIAL ONE
[2018-11-24 10:22] VITALS: BP 108/50
[2018-11-24 11:10] VITALS: BP 91/58
--- NOTE | 2018-11-24 11:10 | NUR ---
CHF CLINIC Discharge Instructions See e-MAR for any mediations given with this visit. Patient education given on disease process. Patient verbalized understanding. Previous labs reviewed. Patient discharged in stable condition with after care instructions and follow up appointment IN 2 WEEKS. NOTE B12 IM L DELTOID ADMIN BY GILMAR LEAHY CARDIODYNAMICS PERFORMED BY GILMAR LEAHY AND REVIEWED WITH PATIENT BY MALLIKA ENNIS. PATIENT EDUCATED TO GET A CONTINUOS REGULATOR FOR HOME PORTABLE O2 TANKS AND TO USE CONTINUOS WHEN THE PATIENT IS MOVING AND TO USE THE ON DEMAND REGULATOR WHEN THE PATIENT IS SEDENTARY, PATIENT VERBALIZED UNDERSTANDING.
== END | disposition home or self-care (01) ==
LOC: CHF HDHVI 10:18
PROVIDERS: ATTEND Internal Medicine Cardiovascular Disease
DX: I27.21 Secondary pulmonary arterial hypertension (principal); I11.0 Hypertensive heart disease with heart failure; I50.42 Chronic combined systolic (congestive) and diastolic (congestive) heart failure; I25.10 Atherosclerotic heart disease of native coronary artery without angina pectoris; R53.83 Other fatigue; J43.9 Emphysema, unspecified; F32.9 Major depressive disorder, single episode, unspecified; J96.12 Chronic respiratory failure with hypercapnia; J96.11 Chronic respiratory failure with hypoxia; Z87.891 Personal history of nicotine dependence; Z79.01 Long term (current) use of anticoagulants; Z90.2 Acquired absence of lung [part of]; Z79.899 Other long term (current) drug therapy
CPT/HCPCS: 93701; 96372; G0463; J3420

== ENCOUNTER → 2018-12-08 | Outpatient (CLI) | payer MEDICARE, OTHER ==
[~2018-12-08] MED LIST changes: +TESTOSTERONE CYPIONATE 200 MG/ML 1ML VIAL IM ONE
[2018-12-08 11:50] VITALS: BP 105/63
--- NOTE | 2018-12-08 11:50 | NUR ---
IN FOR WEEKLY FOLLOWUP FOR PAH. OXYGEN IN USE AT 4 LPM CONTINUOS FROM HOME. PT CURRENTLY TAKING ORENATRAM 1.375 PO TID AND ADEMPAS 2.5 MG PO TID. UNABLE TO TOLERATE 6 MWT CURRENTLY AND DEFERRED BY PATIENT. MEDICATION MANAGEMENT AND CURRENT STATUS REVIEWED BY JOVANA ENNIS. DISCOVERED PT IS TAKING SILDENAFIL TID FROM HOSPITALIZATION DIRECTED BY HOSPITALIST. CLINIC PROVIDER CONSULTED AND ORDERS RECIEVED. NOTED TO HAVE HYPOTENSION. DIRECTED TO STOP MEDICATION. REPEAT BACK INSTRUCTIONS OBTAINED. ALL CARE ADMINISTERED BY JOVANA ENNIS. MEDICATION ADMINISTRATION VITAMIN B12 LEFT DELTOID AT 1107 TESTOSTERONE IM RIGHT GLUT AT 1111
[2018-12-08 12:08] LABS: Basophils # (auto) 0 uL; Eosinophils # (auto) 0.1 uL; Hematocrit 35.9 % (41.0-53.0); Hemoglobin 11.7 g/dL (13.5-17.5); Mean Corpuscular Hemoglobin 25.6 pg (28.0-32.0)
[2018-12-08 12:11] LABS: Basophils % (auto) 1.1 % (0.0-2.0); Eosinophils % (auto) 1.3 % (0.0-7.0); Lymphocytes # (auto) 0.6 uL; Lymphocytes % (auto) 15.2 % (10.0-50.0); Mean Corpuscular Hgb Conc. 32.7 g/dL (32.0-36.0); Mean Corpuscular Volume 78.4 fL (80.0-100.0); Monocytes # (auto) 0.4 uL; Monocytes % (auto) 9.2 % (0.0-12.0); Neutrophils # (auto) 2.9 uL; Neutrophils % (auto) 73.2 % (37.0-80.0); Platelet Count (auto) 167 10^3/uL (140-450); Red Blood Cells 4.58 10^6/uL (4.5-5.90)
[2018-12-08 12:47] LABS: Potassium 4.3 mmol/L (3.5-5.1)
[2018-12-08 12:56] LABS: Albumin 3.6 g/dL (3.4-5.0); BUN/Creatinine Ratio 12.7; Bilirubin, Total 0.5 mg/dL (0.2-1.0); Calcium 8.6 mg/dL (8.5-10.1); Total Protein 6.9 g/dL (6.4-8.2)
== END | disposition home or self-care (01) ==
LOC: CHF HDHVI 10:30
PROVIDERS: ATTEND Internal Medicine Cardiovascular Disease
DX: E29.1 Testicular hypofunction (principal); D64.9 Anemia, unspecified; I11.0 Hypertensive heart disease with heart failure; I50.42 Chronic combined systolic (congestive) and diastolic (congestive) heart failure; I27.21 Secondary pulmonary arterial hypertension; I25.10 Atherosclerotic heart disease of native coronary artery without angina pectoris; J44.9 Chronic obstructive pulmonary disease, unspecified; F32.9 Major depressive disorder, single episode, unspecified; Z87.891 Personal history of nicotine dependence; Z87.01 Personal history of pneumonia (recurrent); Z99.81 Dependence on supplemental oxygen; Z86.711 Personal history of pulmonary embolism; Z90.2 Acquired absence of lung [part of]; Z79.01 Long term (current) use of anticoagulants
CPT/HCPCS: 36415; 80053; 83880; 84403; 85025; 96372; G0463; J1071; J3420

== ENCOUNTER → 2018-12-22 | Outpatient (CLI) | payer MEDICARE, OTHER ==
[~2018-12-22] VITALS: Ht 30.5 cm; Wt 0.5 kg
[2018-12-22 15:58] LABS: Basophils # (auto) 0 uL; Eosinophils # (auto) 0.1 uL; Hematocrit 34.7 % (41.0-53.0); Monocytes # (auto) 0.3 uL; Neutrophils # (auto) 2.9 uL; Red Blood Cells 4.39 10^6/uL (4.5-5.90)
[2018-12-22 16:02] LABS: Basophils % (auto) 0.9 % (0.0-2.0); Eosinophils % (auto) 2.5 % (0.0-7.0); Hemoglobin 11.1 g/dL (13.5-17.5); Lymphocytes # (auto) 0.6 uL; Lymphocytes % (auto) 15.7 % (10.0-50.0); Mean Corpuscular Hemoglobin 25.3 pg (28.0-32.0); Mean Corpuscular Volume 79.1 fL (80.0-100.0); Monocytes % (auto) 8.4 % (0.0-12.0); Neutrophils % (auto) 72.5 % (37.0-80.0); Platelet Count (auto) 159 10^3/uL (140-450); Red Cell Distribution Width 16.7 % (11.8-14.3); White Blood Cell 3.9 10^3/uL (4.4-10.8)
[2018-12-22 16:12] LABS: BUN/Creatinine Ratio 16.1; Calcium 8.4 mg/dL (8.5-10.1); Potassium 4.3 mmol/L (3.5-5.1)
[2018-12-27 12:50] VITALS: BP 108/64
[2018-12-27 15:54] VITALS: BP 104/61
--- NOTE | 2018-12-28 12:13 | NUR ---
LATE ENTRY FOR 12/22/18 PT ARRIVED AT [facility] FOR TX/EVAL AND FOLLOW UP
--- NOTE | 2018-12-28 12:14 | NUR ---
LATE ENTRY FOR 12/22/18 Discharge Instructions See e-MAR for any mediations given with this visit. Patient education given on disease process. Patient verbalized understanding. Previous labs reviewed. Patient discharged in stable condition with after care instructions and follow up appointment. MEDICATIONS TESTOSTERONE IM RIGHT GLUTE VITAMIN B12 IM LEFT DELTOID
== END | disposition home or self-care (01) ==
LOC: CHF HDHVI 10:26
PROVIDERS: ATTEND Internal Medicine Cardiovascular Disease
DX: I27.21 Secondary pulmonary arterial hypertension (principal); I11.0 Hypertensive heart disease with heart failure; I50.42 Chronic combined systolic (congestive) and diastolic (congestive) heart failure; I25.10 Atherosclerotic heart disease of native coronary artery without angina pectoris; D64.9 Anemia, unspecified; E29.1 Testicular hypofunction; R53.83 Other fatigue; J96.11 Chronic respiratory failure with hypoxia; J43.9 Emphysema, unspecified; F32.9 Major depressive disorder, single episode, unspecified; Z87.891 Personal history of nicotine dependence; Z90.2 Acquired absence of lung [part of]; Z79.899 Other long term (current) drug therapy
CPT/HCPCS: 36415; 80048; 83880; 85025; 96372; G0463; J1071; J3420

== ENCOUNTER → 2019-01-05 | Outpatient (CLI) | payer MEDICARE, OTHER ==
[2019-01-05 10:15] VITALS: BP 116/65
[2019-01-05 10:58] VITALS: BP 95/64
--- NOTE | 2019-01-05 10:58 | NUR ---
CHF CLINIC Discharge Instructions See e-MAR for any mediations given with this visit. Patient education given on disease process. Patient verbalized understanding. Previous labs reviewed. Patient discharged in stable condition with after care instructions and follow up appointment IN 2 WEEKS. NOTE TESTOSTERONE IM R GLUTE ADMIN BY VINNIE LEAHY B12 IM L DELTOID ADMIN BY VINNIE LEAHY ORENITRAN TITRATED UP TO 1.625 TID WILL START THIS WEEKEND.
== END | disposition home or self-care (01) ==
LOC: CHF HDHVI 10:22
PROVIDERS: ATTEND Internal Medicine Cardiovascular Disease
DX: E29.1 Testicular hypofunction (principal); I27.21 Secondary pulmonary arterial hypertension; I11.0 Hypertensive heart disease with heart failure; I50.42 Chronic combined systolic (congestive) and diastolic (congestive) heart failure; I25.10 Atherosclerotic heart disease of native coronary artery without angina pectoris; J43.9 Emphysema, unspecified; R53.83 Other fatigue; F32.9 Major depressive disorder, single episode, unspecified; J96.11 Chronic respiratory failure with hypoxia; Z79.899 Other long term (current) drug therapy; Z90.2 Acquired absence of lung [part of]; Z79.01 Long term (current) use of anticoagulants; Z87.891 Personal history of nicotine dependence
CPT/HCPCS: 96372; G0463; J1071; J3420

== ENCOUNTER → 2019-01-16 | Outpatient (CLI) | payer MEDICARE, OTHER ==
[~2019-01-16] MED LIST changes: -CYANOCOBALAMIN (B-12) 1000 MCG/1 ML VIAL IM ONE; -CYANOCOBALAMIN (B-12) 1000 MCG/1 ML VIAL ONE; -TESTOSTERONE CYPIONATE 200 MG/ML 1ML VIAL IM ONE
== END | disposition home or self-care (01) ==
LOC: LAB 11:18
PROVIDERS: ATTEND Psychiatry & Neurology Neurology
DX: G35 Multiple sclerosis (principal)
CPT/HCPCS: 36415; 82565; 84520

== ENCOUNTER → 2019-01-17 | Outpatient (CLI) | payer MEDICARE, OTHER ==
[2019-01-17 16:06] LABS: Albumin 4.2 g/dL (3.4-5.0); BUN/Creatinine Ratio 14.8; Calcium 9.2 mg/dL (8.5-10.1); Magnesium 2.6 mg/dL (1.6-2.6)
[2019-01-17 16:09] LABS: Bilirubin, Total 0.6 mg/dL (0.2-1.0); Total Protein 8.3 g/dL (6.4-8.2)
[2019-01-17 16:14] LABS: Eosinophils # (auto) 0.1 uL; Hemoglobin 12.5 g/dL (13.5-17.5); Monocytes # (auto) 0.4 uL
[2019-01-17 16:20] LABS: Basophils # (auto) 0 uL; Basophils % (auto) 0.6 % (0.0-2.0); Eosinophils % (auto) 1.2 % (0.0-7.0); Hematocrit 38.8 % (41.0-53.0); Lymphocytes # (auto) 0.6 uL; Lymphocytes % (auto) 11.9 % (10.0-50.0); Mean Corpuscular Hgb Conc. 32.1 g/dL (32.0-36.0); Mean Corpuscular Volume 77.8 fL (80.0-100.0); Monocytes % (auto) 7.2 % (0.0-12.0); Neutrophils # (auto) 3.9 uL; Neutrophils % (auto) 79.1 % (37.0-80.0); Nucleated Red Blood Cells % 0.5 %; Platelet Count (auto) 195 10^3/uL (140-450); Red Blood Cells 4.99 10^6/uL (4.5-5.90); Red Cell Distribution Width 16.5 % (11.8-14.3); White Blood Cell 4.9 10^3/uL (4.4-10.8)
== END | disposition home or self-care (01) ==
LOC: LAB 11:50
PROVIDERS: ATTEND Internal Medicine Cardiovascular Disease
DX: E29.1 Testicular hypofunction (principal); I11.0 Hypertensive heart disease with heart failure; I50.9 Heart failure, unspecified; D51.9 Vitamin B12 deficiency anemia, unspecified; D64.9 Anemia, unspecified
CPT/HCPCS: 36415; 80053; 82607; 83735; 83880; 84403; 85025

== ENCOUNTER → 2019-01-19 | Outpatient (CLI) | payer MEDICARE, OTHER ==
[~2019-01-19] MED LIST changes: +CYANOCOBALAMIN (B-12) 1000 MCG/1 ML VIAL IM ONE; +CYANOCOBALAMIN (B-12) 1000 MCG/1 ML VIAL ONE
[2019-01-19 11:17] VITALS: BP 121/65
[2019-01-19 11:18] VITALS: BP 119/71
--- NOTE | 2019-01-19 11:18 | NUR ---
REPORTS FATIGUE. COLOR PINK. OXYGEN IN USE. DISCHARGED TO SELF CARE IN NO DISTRESS.
--- NOTE | 2019-01-19 11:18 | NUR ---
IN TO CLINIC FOR PAH FOLLOWUP AND MANAGEMENT. PREVIOUS LABS REVIEWED. NO ADDITIONAL LABS DRAWN.
== END | disposition home or self-care (01) ==
LOC: CHF HDHVI 10:24
PROVIDERS: ATTEND Internal Medicine Cardiovascular Disease
DX: I27.21 Secondary pulmonary arterial hypertension (principal); J44.9 Chronic obstructive pulmonary disease, unspecified; I11.0 Hypertensive heart disease with heart failure; I50.42 Chronic combined systolic (congestive) and diastolic (congestive) heart failure; I25.10 Atherosclerotic heart disease of native coronary artery without angina pectoris; J96.01 Acute respiratory failure with hypoxia; F32.9 Major depressive disorder, single episode, unspecified; Z79.01 Long term (current) use of anticoagulants; Z79.899 Other long term (current) drug therapy; Z87.891 Personal history of nicotine dependence; Z99.81 Dependence on supplemental oxygen
CPT/HCPCS: 96372; G0463; J3420

== ENCOUNTER → 2019-02-02 | Outpatient (CLI) | payer MEDICARE, OTHER ==
[~2019-02-02] MED LIST changes: +TESTOSTERONE CYPIONATE 200 MG/ML 1ML VIAL IM ONE
[2019-02-02 10:18] VITALS: BP 114/74
[2019-02-02 11:17] VITALS: BP 113/63
--- NOTE | 2019-02-02 11:17 | NUR ---
IN TO CLINIC FOR PAH FOLLOWUP. OXYGEN IN USE FROM HOME. DYSPNEA WITH ACTIVITY, RESOLVES OR DECREASED WITH REST. PREVIOUS LABS REVIEWED AND ADDITIONAL LABS DRAWN AND SENT. EDUCATION BY JOVANA ENNIS. MEDICATED PER ORDER. DISCHARGED TO SELF CARE IN NO DISTRESS OR DISCOMFORT. VIT B12 1000 MCG IM TO RIGHT DELTOID AT 1105 TESTOSTERONE 200 MG IM TO RIGHT GLUT AT 1108
[2019-02-02 12:07] LABS: Potassium 4.3 mmol/L (3.5-5.1)
== END | disposition home or self-care (01) ==
LOC: CHF HDHVI 10:31
PROVIDERS: ATTEND Internal Medicine Cardiovascular Disease
DX: I27.21 Secondary pulmonary arterial hypertension (principal); I11.0 Hypertensive heart disease with heart failure; I50.42 Chronic combined systolic (congestive) and diastolic (congestive) heart failure; E29.1 Testicular hypofunction; I25.10 Atherosclerotic heart disease of native coronary artery without angina pectoris; R94.4 Abnormal results of kidney function studies; J43.9 Emphysema, unspecified; F32.9 Major depressive disorder, single episode, unspecified; Z79.899 Other long term (current) drug therapy; Z87.891 Personal history of nicotine dependence; Z99.81 Dependence on supplemental oxygen; Z79.01 Long term (current) use of anticoagulants
CPT/HCPCS: 36415; 82565; 83880; 84132; 84520; 94618; 96372; G0463; J1071; J3420

== ENCOUNTER → 2019-02-08 | Outpatient (CLI) | payer MEDICARE, OTHER ==
[~2019-02-08] MED LIST changes: -CYANOCOBALAMIN (B-12) 1000 MCG/1 ML VIAL IM ONE; -CYANOCOBALAMIN (B-12) 1000 MCG/1 ML VIAL ONE; -TESTOSTERONE CYPIONATE 200 MG/ML 1ML VIAL IM ONE
[2019-02-08 12:12] LABS: Cholesterol 89 mg/dL (< 200)
[2019-02-08 12:15] LABS: HDL Cholesterol 36 mg/dL (40-59); LDL Cholesterol 54 mg/dL (< 100); Triglycerides 56 mg/dL (< 150)
[2019-02-08 12:22] LABS: Prostate Specific Antigen 0.71 ng/mL (0.0-4.0)
[2019-02-09 09:53] LABS: Urine Blood Negative /uL (Negative); Urine Specific Gravity 1.027 (1.001-1.035)
== END | disposition home or self-care (01) ==
LOC: LAB 10:54
PROVIDERS: ATTEND Family Medicine
DX: J84.10 Pulmonary fibrosis, unspecified (principal); I27.20 Pulmonary hypertension, unspecified; G35 Multiple sclerosis; R74.8 Abnormal levels of other serum enzymes; Z12.5 Encounter for screening for malignant neoplasm of prostate
CPT/HCPCS: 36415; 80061; 81003; 82607; 84153

== ENCOUNTER → 2019-02-16 | Outpatient (CLI) | payer MEDICARE, OTHER ==
[2019-02-16 10:30] VITALS: BP 116/70
[2019-02-16 10:48] VITALS: BP 110/65
--- NOTE | 2019-02-16 10:48 | NUR ---
Discharge Instructions See e-MAR for any mediations given with this visit. Patient education given on disease process. Patient verbalized understanding. Previous labs reviewed. Patient discharged in stable condition with after care instructions and follow up appointment. Note Patient titrated up to Orenatran 2.0 tid starting this weekend. Will f/u in 2 weeks.
[2019-02-16 11:58] LABS: Potassium 4.1 mmol/L (3.5-5.1)
== END | disposition home or self-care (01) ==
LOC: CHF HDHVI 10:21
PROVIDERS: ATTEND Internal Medicine Cardiovascular Disease
DX: R94.4 Abnormal results of kidney function studies (principal); I11.0 Hypertensive heart disease with heart failure; I50.9 Heart failure, unspecified; I27.21 Secondary pulmonary arterial hypertension
CPT/HCPCS: 36415; 82565; 83880; 84132; 84520; G0463

== ENCOUNTER → 2019-03-02 | Outpatient (CLI) | payer MEDICARE, OTHER ==
[2019-03-02 10:23] VITALS: BP 120/73
--- NOTE | 2019-03-02 10:23 | NUR ---
CHF CLINIC PT IN TO CHF CLINIC FOR PAH F/U. PT IS A&OX4 WITH VSS.
[2019-03-02 12:00] VITALS: BP 104/58
--- NOTE | 2019-03-02 12:00 | NUR ---
Discharge Instructions See e-MAR for any mediations given with this visit. Patient education given on disease process. Patient verbalized understanding, all questions answered. Previous labs reviewed. Patient discharged in stable condition with after care instructions and follow up appointment. NOTE CARDIODYNAMICS PERFORMED BY GILMAR LEAHY AND REVIEWED WITH PT BY SALAZAR ENNIS
[2019-03-02 12:09] LABS: Albumin 3.6 g/dL (3.4-5.0); Calcium 8.6 mg/dL (8.5-10.1); Potassium 3.8 mmol/L (3.5-5.1)
[2019-03-02 12:13] LABS: BUN/Creatinine Ratio 21.3; Bilirubin, Total 0.4 mg/dL (0.2-1.0); Total Protein 7.3 g/dL (6.4-8.2)
== END | disposition home or self-care (01) ==
LOC: CHF HDHVI 10:27
PROVIDERS: ATTEND Internal Medicine Cardiovascular Disease
DX: I50.9 Heart failure, unspecified (principal); I27.21 Secondary pulmonary arterial hypertension; J44.9 Chronic obstructive pulmonary disease, unspecified; F32.9 Major depressive disorder, single episode, unspecified; I26.99 Other pulmonary embolism without acute cor pulmonale; G35 Multiple sclerosis; Z87.891 Personal history of nicotine dependence
CPT/HCPCS: 36415; 80053; 83880; 93701; G0463

== ENCOUNTER → 2019-03-09 | Outpatient (CLI) | payer MEDICARE, OTHER ==
[~2019-03-09] MED LIST changes: +CYANOCOBALAMIN (B-12) 1000 MCG/1 ML VIAL IM ONE; +CYANOCOBALAMIN (B-12) 1000 MCG/1 ML VIAL ONE
[2019-03-09 10:20] VITALS: BP 121/68
[2019-03-09 10:40] VITALS: BP 125/75
--- NOTE | 2019-03-09 10:42 | NUR ---
CHF Clinic Discharge Instructions See e-MAR for any mediations given with this visit. Patient education given on disease process. Patient verbalized understanding. Previous labs reviewed. Patient discharged in stable condition with after care instructions and follow up appointment in 2 weeks. Note B12 IM R deltoid admin by Awilda LEAHY
== END | disposition home or self-care (01) ==
LOC: CHF HDHVI 10:41
PROVIDERS: ATTEND Internal Medicine
DX: I27.21 Secondary pulmonary arterial hypertension (principal); I11.0 Hypertensive heart disease with heart failure; I50.42 Chronic combined systolic (congestive) and diastolic (congestive) heart failure; I25.10 Atherosclerotic heart disease of native coronary artery without angina pectoris; R53.83 Other fatigue; R06.02 Shortness of breath; F32.9 Major depressive disorder, single episode, unspecified; J43.9 Emphysema, unspecified; Z79.01 Long term (current) use of anticoagulants; Z79.899 Other long term (current) drug therapy; Z87.891 Personal history of nicotine dependence; Z99.81 Dependence on supplemental oxygen
CPT/HCPCS: 96372; G0463; J3420

== ENCOUNTER → 2019-05-11 | Outpatient (CLI) | payer MEDICARE, OTHER ==
[~2019-05-11] MED LIST changes: -CYANOCOBALAMIN (B-12) 1000 MCG/1 ML VIAL IM ONE; -CYANOCOBALAMIN (B-12) 1000 MCG/1 ML VIAL ONE
[2019-05-11 10:26] VITALS: BP 111/67
[2019-05-11 11:30] VITALS: BP 110/68
--- NOTE | 2019-05-11 11:30 | NUR ---
Discharge Instructions See e-MAR for any mediations given with this visit. Patient education given on disease process. Patient verbalized understanding. Previous labs reviewed. Patient discharged in stable condition with after care instructions and follow up appointment. CARDIODYNAMICS COMNPLETE Addendum: 05/11/19 at 1357 by SALAZAR MONTOYA RN HI CARDIODYNAMIC COMPLETED BY SRIRAM LEAHY AND RANDAL BY RAYMON WHALEY RN DISCUSSED LABS WITH PATIENT AND HOSPITAL STAY AT [facility] PT SCHEDULED FOR FURTHER PROCEDURES THROUGH [facility] F/U WITH PATIENT WEEKLY
[2019-05-11 16:09] LABS: Albumin 3.7 g/dL (3.4-5.0); Calcium 8.8 mg/dL (8.5-10.1); Magnesium 2.8 mg/dL (1.6-2.6); Potassium 4.6 mmol/L (3.5-5.1)
[2019-05-11 16:10] LABS: Basophils # (auto) 0 uL; Basophils % (auto) 0.9 % (0.0-2.0); Eosinophils # (auto) 0.1 uL; Hematocrit 29.5 % (41.0-53.0); Hemoglobin 9.2 g/dL (13.5-17.5); Lymphocytes # (auto) 0.5 uL; Mean Corpuscular Volume 70.5 fL (80.0-100.0); Monocytes # (auto) 0.3 uL; Neutrophils # (auto) 3.1 uL
[2019-05-11 16:13] LABS: Eosinophils % (auto) 1.3 % (0.0-7.0); Lymphocytes % (auto) 13.6 % (10.0-50.0); Mean Corpuscular Hemoglobin 21.9 pg (28.0-32.0); Monocytes % (auto) 7.4 % (0.0-12.0); Neutrophils % (auto) 76.8 % (37.0-80.0); Platelet Count (auto) 172 10^3/uL (140-450); Red Blood Cells 4.18 10^6/uL (4.5-5.90); Red Cell Distribution Width 18.5 % (11.8-14.3)
[2019-05-11 16:19] LABS: Bilirubin, Total 0.4 mg/dL (0.2-1.0); Total Protein 7.4 g/dL (6.4-8.2)
== END | disposition home or self-care (01) ==
LOC: CHF HDHVI 10:27
PROVIDERS: ATTEND Internal Medicine Cardiovascular Disease
DX: I50.9 Heart failure, unspecified (principal); K90.9 Intestinal malabsorption, unspecified
CPT/HCPCS: 36415; 80053; 82306; 83735; 83880; 85025; 93701; G0463

== ENCOUNTER → 2019-05-19 | Outpatient (CLI) | payer MEDICARE, OTHER ==
[~2019-05-19] MED LIST changes: +CYANOCOBALAMIN (B-12) 1000 MCG/1 ML VIAL IM ONE; +CYANOCOBALAMIN (B-12) 1000 MCG/1 ML VIAL ONE
[2019-05-19 10:45] VITALS: BP_SYST 113; BP_SYST 92; BP_DIAS 59; BP_DIAS 61
[2019-05-19 11:55] VITALS: BP 92/59
--- NOTE | 2019-05-19 11:55 | NUR ---
CHF CLINIC Discharge Instructions See e-MAR for any mediations given with this visit. Patient education given on disease process. Patient verbalized understanding. Previous labs reviewed. Labs drawn and sent out. Patient discharged in stable condition with after care instructions and follow up appointment. NOTES CARDIODYNAMICS DONE BY GILMAR LEAHY ND RESULTS REVIEWED WITH PT BY MALLIKA ENNIS VIT B12 IM LEFT DELTOID ADMIN BY GILMAR LEAHY
[2019-05-19 15:49] LABS: Basophils # (auto) 0 uL; Eosinophils # (auto) 0 uL; Hemoglobin 9.1 g/dL (13.5-17.5); Lymphocytes # (auto) 0.4 uL; Monocytes # (auto) 0.2 uL; Neutrophils # (auto) 2.6 uL; Red Cell Distribution Width 17.9 % (11.8-14.3)
[2019-05-19 15:51] LABS: Basophils % (auto) 0.9 % (0.0-2.0); Eosinophils % (auto) 1.2 % (0.0-7.0); Hematocrit 29.9 % (41.0-53.0); Lymphocytes % (auto) 11.3 % (10.0-50.0); Mean Corpuscular Hemoglobin 21.5 pg (28.0-32.0); Mean Corpuscular Hgb Conc. 30.6 g/dL (32.0-36.0); Mean Corpuscular Volume 70.2 fL (80.0-100.0); Monocytes % (auto) 7.1 % (0.0-12.0); Neutrophils % (auto) 79.5 % (37.0-80.0); Nucleated Red Blood Cells % 0.1 %; Platelet Count (auto) 162 10^3/uL (140-450); Red Blood Cells 4.26 10^6/uL (4.5-5.90); White Blood Cell 3.2 10^3/uL (4.4-10.8)
[2019-05-19 16:07] LABS: Albumin 3.9 g/dL (3.4-5.0); Calcium 9.1 mg/dL (8.5-10.1); Potassium 4.1 mmol/L (3.5-5.1)
[2019-05-19 16:10] LABS: BUN/Creatinine Ratio 18.4; Bilirubin, Total 0.5 mg/dL (0.2-1.0)
== END | disposition home or self-care (01) ==
LOC: CHF HDHVI 10:22
PROVIDERS: ATTEND Internal Medicine Cardiovascular Disease
DX: I27.21 Secondary pulmonary arterial hypertension (principal); R53.83 Other fatigue; I11.0 Hypertensive heart disease with heart failure; I50.9 Heart failure, unspecified; D64.9 Anemia, unspecified; J44.9 Chronic obstructive pulmonary disease, unspecified; F32.9 Major depressive disorder, single episode, unspecified; J90 Pleural effusion, not elsewhere classified; E78.00 Pure hypercholesterolemia, unspecified; Z87.891 Personal history of nicotine dependence
CPT/HCPCS: 36415; 80053; 83880; 85025; 93701; 96372; G0463; J3420

== ENCOUNTER → 2019-05-25 | Outpatient (CLI) | payer MEDICARE, OTHER ==
[~2019-05-25] MED LIST changes: -CYANOCOBALAMIN (B-12) 1000 MCG/1 ML VIAL IM ONE; -CYANOCOBALAMIN (B-12) 1000 MCG/1 ML VIAL ONE
[2019-05-25 10:15] VITALS: BP 103/57
[2019-05-25 11:05] VITALS: BP 99/51
--- NOTE | 2019-05-25 11:05 | NUR ---
CHF CLINIC Discharge Instructions See e-MAR for any mediations given with this visit. Patient education given on disease process. Patient verbalized understanding. Previous labs reviewed. Patient discharged in stable condition with after care instructions and follow up appointment. NOTE PATIENT EDUCATED ON MEDICATIONS, FLUID RESTRICTIONS, AND 2GM SODIUM DIET.
== END | disposition home or self-care (01) ==
LOC: CHF HDHVI 10:16
PROVIDERS: ATTEND Internal Medicine
DX: I50.9 Heart failure, unspecified (principal)
CPT/HCPCS: G0463

== ENCOUNTER → 2019-06-06 | Outpatient (CLI) | payer MEDICARE, OTHER ==
[~2019-06-06] MED LIST changes: +CYANOCOBALAMIN (B-12) 1000 MCG/1 ML VIAL IM ONE; +CYANOCOBALAMIN (B-12) 1000 MCG/1 ML VIAL ONE
[2019-06-06 15:26] VITALS: BP 87/60
--- NOTE | 2019-06-06 15:26 | NUR ---
Discharge Instructions See e-MAR for any mediations given with this visit. Patient education given on disease process. Patient verbalized understanding. Previous labs reviewed. Patient discharged in stable condition with after care instructions and follow up appointment. MEDICATIONS VITAMIN B12 LEFT DELTOID LOT # [id number] EXP 11/06 CARDIODYNAMICS COMPLETED BY VINNIE LEAHY AND REVIEWED BY JOVANA ENNIS Addendum: 06/06/19 at 1733 by SALAZAR MONTOYA RN NE IRON BOOST PROVIDED TO PT
[2019-06-06 16:11] VITALS: BP 102/63
== END | disposition home or self-care (01) ==
LOC: CHF HDHVI 16:09
PROVIDERS: ATTEND Internal Medicine
DX: I27.21 Secondary pulmonary arterial hypertension (principal); R53.83 Other fatigue; I11.0 Hypertensive heart disease with heart failure; I50.9 Heart failure, unspecified; J44.9 Chronic obstructive pulmonary disease, unspecified; F32.9 Major depressive disorder, single episode, unspecified; J90 Pleural effusion, not elsewhere classified; E78.00 Pure hypercholesterolemia, unspecified; Z87.891 Personal history of nicotine dependence
CPT/HCPCS: 93701; 96372; G0463; J3420

== ENCOUNTER → 2019-06-15 | Outpatient (CLI) | payer MEDICARE, OTHER ==
[2019-06-15 10:30] VITALS: BP 114/55
[2019-06-15 11:34] VITALS: BP 107/57
[2019-06-15 16:14] LABS: Albumin 3.4 g/dL (3.4-5.0); Calcium 8.7 mg/dL (8.5-10.1); Magnesium 2.7 mg/dL (1.6-2.6); Potassium 3.9 mmol/L (3.5-5.1)
[2019-06-15 16:19] LABS: BUN/Creatinine Ratio 14.9; Bilirubin, Total 0.4 mg/dL (0.2-1.0); Total Protein 7.3 g/dL (6.4-8.2)
== END | disposition home or self-care (01) ==
LOC: CHF HDHVI 10:46
PROVIDERS: ATTEND Internal Medicine
DX: I27.21 Secondary pulmonary arterial hypertension (principal); R53.83 Other fatigue; I11.0 Hypertensive heart disease with heart failure; I50.9 Heart failure, unspecified; J44.9 Chronic obstructive pulmonary disease, unspecified; R00.2 Palpitations; F32.9 Major depressive disorder, single episode, unspecified; J90 Pleural effusion, not elsewhere classified; E78.00 Pure hypercholesterolemia, unspecified; Z79.899 Other long term (current) drug therapy; Z87.891 Personal history of nicotine dependence
CPT/HCPCS: 36415; 80053; 83735; 96372; G0463; J3420

== ENCOUNTER → 2019-06-22 | Outpatient (CLI) | payer MEDICARE, OTHER ==
[~2019-06-22] MED LIST changes: -CYANOCOBALAMIN (B-12) 1000 MCG/1 ML VIAL IM ONE; -CYANOCOBALAMIN (B-12) 1000 MCG/1 ML VIAL ONE; +TREP1TAB PO; +TREP1TAB3 PO
[2019-06-22 10:30] VITALS: BP 97/48
--- NOTE | 2019-06-22 10:30 | NUR ---
Patient came in for weekly visit. Patient arrived on home O2 6LPM, patient placed on facility O2, AAOX4.
--- NOTE | 2019-06-22 10:40 | NUR ---
Patient O2 reduced to 4LPM, pt normally on 4lpm and increases to 6lpm during activity. Patient had received a call from [facility] to schedule an appt on July 16.
--- NOTE | 2019-06-22 11:30 | NUR ---
Michael RN speaking with patient about POC and that Dr Sandoval wants to start titrating orenitram again. Patient started on L-arginine complexer.
[2019-06-22 12:17] VITALS: BP 99/54
--- NOTE | 2019-06-22 12:17 | NUR ---
[facility] Discharge Instructions See e-MAR for any mediations given with this visit. Patient education given on disease process. Patient verbalized understanding. Previous labs reviewed. Patient discharged in stable condition with after care instructions and follow up appointment in one week. Note Patient Orenitram increased to 2.125mg BID.
== END | disposition home or self-care (01) ==
LOC: CHF HDHVI 10:54
PROVIDERS: ATTEND Internal Medicine Cardiovascular Disease
DX: I27.21 Secondary pulmonary arterial hypertension (principal); J44.9 Chronic obstructive pulmonary disease, unspecified; I48.91 Unspecified atrial fibrillation; Z99.81 Dependence on supplemental oxygen
CPT/HCPCS: G0463

== ENCOUNTER 2019-06-27 15:28 | Inpatient (IN) | payer MEDICARE, OTHER ==
[~2019-06-27] VITALS: Ht 175.3 cm; Wt 68.9 kg
[~2019-06-27 15:28] MED LIST changes: -TREP1TAB PO; -TREP1TAB3 PO
[2019-06-27] MEDS ORDERED: ALBUTEROL SULF 2.5 MG/0.5ML(0.5%) NEB SOLN NEB ONE (16:00)
[2019-06-27] MEDS ORDERED: IPRATROPIUM BROM 0.5 MG/2.5ML INH SOL NEB ONE (16:00)
[2019-06-27 16:23] LABS: Basophils # (auto) 0 10 ^3/uL (0-0.2); Basophils % (auto) 0.8 % (0.0-2.0); Eosinophils # (auto) 0 10 ^3/uL (0-0.8); Lymphocytes # (auto) 0.6 10 ^3/uL (0.4-5.4); Monocytes # (auto) 0.4 10 ^3/uL (0-1.3)
[2019-06-27 16:26] LABS: Eosinophils % (auto) 0.8 % (0.0-7.0); Hematocrit 28.2 % (41.0-53.0); Hemoglobin 8.7 g/dL (13.5-17.5); Lymphocytes % (auto) 11.6 % (10.0-50.0); Mean Corpuscular Hemoglobin 20.8 pg (28.0-32.0); Mean Corpuscular Hgb Conc. 30.8 g/dL (32.0-36.0); Mean Corpuscular Volume 67.5 fL (80.0-100.0); Monocytes % (auto) 7.7 % (0.0-12.0); Neutrophils % (auto) 79.1 % (37.0-80.0); Nucleated Red Blood Cells % 0.2 %; Platelet Count (auto) 207 10^3/uL (140-450); Red Blood Cells 4.18 10^6/uL (4.5-5.90); Red Cell Distribution Width 18.1 % (11.8-14.3); White Blood Cell 5.1 10^3/uL (4.4-10.8)
[2019-06-27 16:46] LABS: Calcium 9.1 mg/dL (8.5-10.1); Potassium 3.5 mmol/L (3.5-5.1)
[2019-06-27 16:54] LABS: Albumin 3.8 g/dL (3.4-5.0); BUN/Creatinine Ratio 21.6; Bilirubin, Total 0.5 mg/dL (0.2-1.0)
[2019-06-27] MEDS ORDERED: ACETAMINOPHEN 500 MG TAB PO PRN (18:30)
[2019-06-27] MEDS ORDERED: ALBUTEROL SULF 2.5 MG/0.5ML(0.5%) NEB SOLN NEB PRN (18:30)
[2019-06-27] MEDS ORDERED: ONDANSETRON HCL 4 MG/2 ML VIAL IV PRN (18:30)
[2019-06-27] MEDS ORDERED: MORPHINE SULF INJ 2 MG/ML SYRINGE 1ML IV PRN ×2 (18:30)
[2019-06-27] MEDS ORDERED: IPRATROPIUM BROM 0.5 MG/2.5ML INH SOL NEB PRN (18:30)
[2019-06-27] MEDS ORDERED: HYDROcodone-ACET 5/325MG TAB PO PRN (18:30)
[2019-06-27] MEDS ORDERED: BUMETANIDE 2.5mg/10ml (0.25 mg/ml) INJ IV ONE (18:30)
[2019-06-27 21:16] VITALS: BP 114/63
[2019-06-27] MEDS: Riociguat Base (Adempas) 2.5 MG PO SCH (22:00)
[2019-06-27] MEDS: GABAPENTIN 300 MG CAP PO SCH (22:27)
[2019-06-27] MEDS: AMITRIPTYLINE HCL 25 MG TAB PO SCH (22:27)
[2019-06-27] MEDS: BACLOFEN 10 MG TAB PO SCH (22:27)
[2019-06-28] VITALS (7 sets, daily range): BP systolic 94–115; BP diastolic 52–68
[2019-06-28] MEDS: Riociguat Base (Adempas) 2.5 MG PO SCH ×2 (05:53→14:00)
[2019-06-28] MEDS: BACLOFEN 10 MG TAB PO SCH ×3 (05:53→22:00)
[2019-06-28] MEDS: GABAPENTIN 300 MG CAP PO SCH ×3 (05:53→22:00)
[2019-06-28 06:00] LABS: Basophils # (auto) 0 10 ^3/uL (0-0.2); Basophils % (auto) 1.2 % (0.0-2.0); Eosinophils # (auto) 0.1 10 ^3/uL (0-0.8); Lymphocytes # (auto) 0.6 10 ^3/uL (0.4-5.4); Monocytes # (auto) 0.3 10 ^3/uL (0-1.3)
[2019-06-28 06:07] LABS: Hematocrit 21.3 % (41.0-53.0); Lymphocytes % (auto) 20.7 % (10.0-50.0); Mean Corpuscular Hemoglobin 21.3 pg (28.0-32.0); Mean Corpuscular Hgb Conc. 31.9 g/dL (32.0-36.0); Mean Corpuscular Volume 66.8 fL (80.0-100.0); Monocytes % (auto) 9.4 % (0.0-12.0); Neutrophils % (auto) 66.7 % (37.0-80.0); Platelet Count (auto) 155 10^3/uL (140-450); Red Blood Cells 3.19 10^6/uL (4.5-5.90)
[2019-06-28 06:14] LABS: Albumin 3.1 g/dL (3.4-5.0); Potassium 3.9 mmol/L (3.5-5.1)
[2019-06-28 06:15] LABS: Hemoglobin 6.8 g/dL (13.5-17.5)
[2019-06-28 06:18] LABS: BUN/Creatinine Ratio 25.7; Bilirubin, Total 0.3 mg/dL (0.2-1.0); Total Protein 6.6 g/dL (6.4-8.2)
[2019-06-28] MEDS ORDERED: APIXABAN 5 MG TAB PO SCH (10:00)
[2019-06-28] MEDS: FAMOTIDINE 20 MG TAB PO SCH (10:25)
[2019-06-28] MEDS ORDERED: TREP1TAB3 PO (11:14)
[2019-06-28] MEDS ORDERED: TREP1TAB PO (11:19)
[2019-06-28] MEDS ORDERED: BUMETANIDE 2.5mg/10ml (0.25 mg/ml) INJ IV ONE ×3 (12:30→17:00)
[2019-06-28 13:25] LABS: INR 1.15 (0.9-1.15); Partial Thromboplastin Time 30.1 sec (23.64-32.05)
[2019-06-28] MEDS: RIOCIGUAT 2.5 MG PO SCH ×2 (14:03→21:59)
[2019-06-28] MEDS: TREPROSTINIL DIOLAMINE PO SCH ×2 (14:04→21:59)
[2019-06-28 15:35] LABS: Hematocrit 23.6 % (41.0-53.0); Hemoglobin 7.5 g/dL (13.5-17.5)
[2019-06-28 17:03] LABS: Urine Bacteria NONE SEEN /hpf (None Seen); Urine Blood Negative /uL (Negative); Urine WBC <1 /hpf (0 - 3)
[2019-06-28] MEDS: MACITENTAN (OPSUMIT) 10 MG TAB PO SCH (18:25)
[2019-06-28] MEDS: AMITRIPTYLINE HCL 25 MG TAB PO SCH (21:59)
[2019-06-29 00:34] VITALS: BP 100/58
[2019-06-29 04:00] VITALS: BP 89/44
[2019-06-29] MEDS: TREPROSTINIL DIOLAMINE PO SCH ×3 (05:30→22:10)
[2019-06-29] MEDS: BACLOFEN 10 MG TAB PO SCH ×3 (05:30→22:11)
[2019-06-29] MEDS: RIOCIGUAT 2.5 MG PO SCH ×3 (05:30→22:10)
[2019-06-29] MEDS: GABAPENTIN 300 MG CAP PO SCH ×3 (05:30→22:11)
[2019-06-29 07:53] VITALS: BP 94/47
[2019-06-29] MEDS: MACITENTAN (OPSUMIT) 10 MG TAB PO SCH (09:55)
[2019-06-29] MEDS: FAMOTIDINE 20 MG TAB PO SCH (10:13)
[2019-06-29 11:44] LABS: Basophils # (auto) 0 10 ^3/uL (0-0.2); Basophils % (auto) 1.2 % (0.0-2.0); Eosinophils # (auto) 0.1 10 ^3/uL (0-0.8); Eosinophils % (auto) 2.3 % (0.0-7.0); Hematocrit 28.1 % (41.0-53.0); Hemoglobin 8.8 g/dL (13.5-17.5); Lymphocytes # (auto) 0.4 10 ^3/uL (0.4-5.4); Lymphocytes % (auto) 13.1 % (10.0-50.0); Mean Corpuscular Hemoglobin 21.6 pg (28.0-32.0); Mean Corpuscular Hgb Conc. 31.2 g/dL (32.0-36.0); Mean Corpuscular Volume 69.2 fL (80.0-100.0); Monocytes # (auto) 0.2 10 ^3/uL (0-1.3); Monocytes % (auto) 7.4 % (0.0-12.0); Neutrophils # (auto) 2.5 10 ^3/uL (1.6-8.6); Nucleated Red Blood Cells % 0.1 %; Platelet Count (auto) 176 10^3/uL (140-450); Red Blood Cells 4.06 10^6/uL (4.5-5.90); Red Cell Distribution Width 19.2 % (11.8-14.3); White Blood Cell 3.3 10^3/uL (4.4-10.8)
[2019-06-29 11:49] VITALS: BP 101/54
[2019-06-29 12:03] LABS: Potassium 3.7 mmol/L (3.5-5.1)
[2019-06-29 12:09] LABS: Albumin 3.1 g/dL (3.4-5.0); BUN/Creatinine Ratio 18.6; Bilirubin, Total 0.4 mg/dL (0.2-1.0); Calcium 8.3 mg/dL (8.5-10.1); Magnesium 2.4 mg/dL (1.6-2.6); Total Protein 6.9 g/dL (6.4-8.2)
[2019-06-29 15:39] VITALS: BP 92/55
[2019-06-29] MEDS: MACITENTAN 10 MG PO SCH (18:26)
[2019-06-29] MEDS: BUMETANIDE 2.5mg/10ml (0.25 mg/ml) INJ IV SCH (18:28)
[2019-06-29 20:00] VITALS: BP 93/58
[2019-06-29] MEDS: AMITRIPTYLINE HCL 25 MG TAB PO SCH (22:11)
[2019-06-30] VITALS: BP 98/55
[2019-06-30] MEDS ORDERED: TEMAZEPAM 15 MG CAP ONE (01:49)
[2019-06-30] MEDS ORDERED: TEMAZEPAM 15 MG CAP PO ONE (02:00)
[2019-06-30 04:00] VITALS: BP 106/64
[2019-06-30 05:26] LABS: Basophils # (auto) 0 10 ^3/uL (0-0.2); Basophils % (auto) 1.1 % (0.0-2.0); Eosinophils # (auto) 0.1 10 ^3/uL (0-0.8); Eosinophils % (auto) 2.5 % (0.0-7.0); Hematocrit 28.5 % (41.0-53.0); Hemoglobin 8.9 g/dL (13.5-17.5); Lymphocytes # (auto) 0.5 10 ^3/uL (0.4-5.4); Lymphocytes % (auto) 13.6 % (10.0-50.0); Mean Corpuscular Hemoglobin 21.7 pg (28.0-32.0); Mean Corpuscular Hgb Conc. 31.4 g/dL (32.0-36.0); Mean Corpuscular Volume 69.2 fL (80.0-100.0); Monocytes # (auto) 0.3 10 ^3/uL (0-1.3); Monocytes % (auto) 8.4 % (0.0-12.0); Neutrophils % (auto) 74.4 % (37.0-80.0); Platelet Count (auto) 175 10^3/uL (140-450); Red Blood Cells 4.12 10^6/uL (4.5-5.90); Red Cell Distribution Width 19.3 % (11.8-14.3)
[2019-06-30 05:39] LABS: INR 1.14 (0.9-1.15); Partial Thromboplastin Time 30.2 sec (23.64-32.05)
[2019-06-30 05:50] LABS: BUN/Creatinine Ratio 17.9; Calcium 8.6 mg/dL (8.5-10.1); Potassium 3.7 mmol/L (3.5-5.1)
[2019-06-30] MEDS: BACLOFEN 10 MG TAB PO SCH ×3 (06:21→21:15)
[2019-06-30] MEDS: GABAPENTIN 300 MG CAP PO SCH ×3 (06:21→21:14)
[2019-06-30] MEDS: TREPROSTINIL DIOLAMINE PO SCH ×2 (06:21→14:04)
[2019-06-30] MEDS: BUMETANIDE 2.5mg/10ml (0.25 mg/ml) INJ IV SCH ×2 (06:21→18:35)
[2019-06-30] MEDS: RIOCIGUAT 2.5 MG PO SCH ×3 (06:21→21:16)
[2019-06-30 07:40] VITALS: BP 98/56
[2019-06-30] MEDS: FAMOTIDINE 20 MG TAB PO SCH (09:36)
[2019-06-30 11:50] VITALS: BP 95/56
[2019-06-30 15:45] VITALS: BP 84/49
[2019-06-30] MEDS ORDERED: HEPARIN IN NS 1000Units/500mL 0 ML ONE (16:24)
[2019-06-30] MEDS ORDERED: LIDOCAINE 2%HCL (LOCAL ANESTH.) INJ 20ML MDV ONE (16:24)
[2019-06-30] MEDS ORDERED: IOHEXOL 350 MG/ML 100ML IJ ONE (16:24)
[2019-06-30] MEDS ORDERED: MIDAZOLAM HCL 1MG/1ML-2 ML VIAL ONE (17:17)
[2019-06-30] MEDS ORDERED: fentaNYL CITRATE 100 MCG/2 ML VL ONE (17:17)
[2019-06-30] MEDS: MACITENTAN 10 MG PO SCH (18:35)
[2019-06-30] MEDS: AMITRIPTYLINE HCL 25 MG TAB PO SCH (21:15)
[2019-06-30] MEDS: TREPROSTINIL DIOLAMINE 0.125 MG PO SCH (21:16)
[2019-06-30 23:48] VITALS: BP 96/55
[2019-07-01 04:00] VITALS: BP 95/55
[2019-07-01 05:32] LABS: Basophils # (auto) 0 10 ^3/uL (0-0.2); Eosinophils # (auto) 0.1 10 ^3/uL (0-0.8); Eosinophils % (auto) 3.5 % (0.0-7.0); Hemoglobin 8.4 g/dL (13.5-17.5); Lymphocytes # (auto) 0.6 10 ^3/uL (0.4-5.4); Mean Corpuscular Hemoglobin 21.5 pg (28.0-32.0); Mean Corpuscular Volume 69.3 fL (80.0-100.0); Monocytes # (auto) 0.3 10 ^3/uL (0-1.3); Monocytes % (auto) 8.8 % (0.0-12.0); Neutrophils # (auto) 2.7 10 ^3/uL (1.6-8.6); Neutrophils % (auto) 71.7 % (37.0-80.0); Nucleated Red Blood Cells % 0.1 %; Platelet Count (auto) 169 10^3/uL (140-450); Red Blood Cells 3.89 10^6/uL (4.5-5.90); Red Cell Distribution Width 18.8 % (11.8-14.3); White Blood Cell 3.7 10^3/uL (4.4-10.8)
[2019-07-01 05:50] LABS: Potassium 4.3 mmol/L (3.5-5.1)
[2019-07-01 05:55] LABS: BUN/Creatinine Ratio 19.6; Calcium 8.5 mg/dL (8.5-10.1)
[2019-07-01] MEDS: BUMETANIDE 2.5mg/10ml (0.25 mg/ml) INJ IV SCH ×2 (06:00→17:33)
[2019-07-01] MEDS: TREPROSTINIL DIOLAMINE 0.125 MG PO SCH ×3 (06:37→21:33)
[2019-07-01] MEDS: GABAPENTIN 300 MG CAP PO SCH ×3 (06:37→21:34)
[2019-07-01] MEDS: RIOCIGUAT 2.5 MG PO SCH ×3 (06:37→21:32)
[2019-07-01] MEDS: BACLOFEN 10 MG TAB PO SCH ×3 (06:37→21:34)
[2019-07-01 07:40] VITALS: BP 83/48
[2019-07-01] MEDS: FAMOTIDINE 20 MG TAB PO SCH (09:32)
[2019-07-01 10:50] VITALS: BP 83/48
[2019-07-01 11:40] VITALS: BP 90/56
[2019-07-01 17:05] VITALS: BP 98/62
[2019-07-01] MEDS: MACITENTAN 10 MG PO SCH (17:40)
[2019-07-01] MEDS: TREPROSTINIL PO SCH (21:32)
[2019-07-01] MEDS: AMITRIPTYLINE HCL 25 MG TAB PO SCH (21:33)
[2019-07-01 22:00] VITALS: BP 91/55
[2019-07-01] MEDS ORDERED: TREPROSTINIL PO SCH (22:00)
[2019-07-02] MEDS: BUMETANIDE 2.5mg/10ml (0.25 mg/ml) INJ IV SCH (06:00)
[2019-07-02] MEDS: GABAPENTIN 300 MG CAP PO SCH ×3 (06:24→21:58)
[2019-07-02] MEDS: BACLOFEN 10 MG TAB PO SCH ×3 (06:24→21:59)
[2019-07-02] MEDS: TREPROSTINIL PO SCH ×3 (06:27→21:58)
[2019-07-02] MEDS: TREPROSTINIL DIOLAMINE 0.125 MG PO SCH ×3 (06:28→21:58)
[2019-07-02] MEDS: RIOCIGUAT 2.5 MG PO SCH ×3 (06:29→21:58)
[2019-07-02 07:40] LABS: Eosinophils # (auto) 0.1 10 ^3/uL (0-0.8); Hematocrit 24.9 % (41.0-53.0); Mean Corpuscular Hemoglobin 21.7 pg (28.0-32.0); Mean Corpuscular Hgb Conc. 31.9 g/dL (32.0-36.0); Monocytes # (auto) 0.3 10 ^3/uL (0-1.3)
[2019-07-02 07:43] LABS: Basophils # (auto) 0.1 10 ^3/uL (0-0.2); Basophils % (auto) 1.4 % (0.0-2.0); Eosinophils % (auto) 3.1 % (0.0-7.0); Lymphocytes # (auto) 0.7 10 ^3/uL (0.4-5.4); Lymphocytes % (auto) 18.9 % (10.0-50.0); Mean Corpuscular Volume 68.1 fL (80.0-100.0); Monocytes % (auto) 8.6 % (0.0-12.0); Neutrophils # (auto) 2.6 10 ^3/uL (1.6-8.6); Nucleated Red Blood Cells % 0.1 %; Platelet Count (auto) 164 10^3/uL (140-450); Red Blood Cells 3.66 10^6/uL (4.5-5.90); Red Cell Distribution Width 18.8 % (11.8-14.3); White Blood Cell 3.8 10^3/uL (4.4-10.8)
[2019-07-02 07:56] LABS: BUN/Creatinine Ratio 19.6; Calcium 8.2 mg/dL (8.5-10.1)
[2019-07-02 09:00] VITALS: BP 90/59
[2019-07-02] MEDS: FAMOTIDINE 20 MG TAB PO SCH (09:20)
[2019-07-02 12:47] VITALS: BP 88/49
[2019-07-02 17:00] VITALS: BP 91/58
[2019-07-02] MEDS: MACITENTAN 10 MG PO SCH (17:04)
[2019-07-02] MEDS: AMITRIPTYLINE HCL 25 MG TAB PO SCH (21:59)
[2019-07-02 22:00] VITALS: BP 96/58
[2019-07-03] MEDS ORDERED: TEMAZEPAM 15 MG CAP PO PRN (00:15)
[2019-07-03 05:00] VITALS: BP 88/53
[2019-07-03 05:10] VITALS: BP 91/56
[2019-07-03] MEDS: GABAPENTIN 300 MG CAP PO SCH ×3 (05:40→21:54)
[2019-07-03] MEDS: BACLOFEN 10 MG TAB PO SCH ×3 (05:40→21:54)
[2019-07-03] MEDS: TREPROSTINIL DIOLAMINE 0.125 MG PO SCH ×3 (05:41→21:55)
[2019-07-03] MEDS: TREPROSTINIL PO SCH ×3 (05:41→21:55)
[2019-07-03] MEDS: RIOCIGUAT 2.5 MG PO SCH ×3 (05:41→21:55)
[2019-07-03 06:07] LABS: Basophils # (auto) 0 10 ^3/uL (0-0.2); Eosinophils # (auto) 0.1 10 ^3/uL (0-0.8); Lymphocytes # (auto) 0.7 10 ^3/uL (0.4-5.4); Monocytes # (auto) 0.3 10 ^3/uL (0-1.3); Platelet Count (auto) 144 10^3/uL (140-450)
[2019-07-03 06:09] LABS: Basophils % (auto) 1.3 % (0.0-2.0); Eosinophils % (auto) 3.2 % (0.0-7.0); Hematocrit 26.7 % (41.0-53.0); Hemoglobin 8.4 g/dL (13.5-17.5); Lymphocytes % (auto) 21.2 % (10.0-50.0); Mean Corpuscular Hemoglobin 21.5 pg (28.0-32.0); Mean Corpuscular Hgb Conc. 31.4 g/dL (32.0-36.0); Mean Corpuscular Volume 68.4 fL (80.0-100.0); Monocytes % (auto) 8.6 % (0.0-12.0); Neutrophils # (auto) 2.2 10 ^3/uL (1.6-8.6); Neutrophils % (auto) 65.7 % (37.0-80.0); White Blood Cell 3.3 10^3/uL (4.4-10.8)
[2019-07-03 06:12] LABS: BUN/Creatinine Ratio 23.9; Calcium 8.3 mg/dL (8.5-10.1); Potassium 3.9 mmol/L (3.5-5.1)
[2019-07-03 09:00] VITALS: BP 102/66
[2019-07-03] MEDS: BUMETANIDE 1 MG TAB PO SCH (09:22)
[2019-07-03] MEDS: FAMOTIDINE 20 MG TAB PO SCH (09:23)
[2019-07-03] MEDS: levoFLOXacin 500MG 100 ML IV SCH (09:30)
[2019-07-03 13:00] VITALS: BP 135/63
[2019-07-03 17:00] VITALS: BP 106/56
[2019-07-03] MEDS: MACITENTAN 10 MG PO SCH (17:30)
[2019-07-03 21:00] VITALS: BP 103/58
[2019-07-03] MEDS: AMITRIPTYLINE HCL 25 MG TAB PO SCH (21:54)
[2019-07-04 05:00] VITALS: BP 93/56
[2019-07-04] MEDS: TREPROSTINIL PO SCH ×2 (06:04→14:00)
[2019-07-04] MEDS: RIOCIGUAT 2.5 MG PO SCH ×2 (06:05→14:00)
[2019-07-04] MEDS: BACLOFEN 10 MG TAB PO SCH ×2 (06:05→14:00)
[2019-07-04] MEDS: GABAPENTIN 300 MG CAP PO SCH ×2 (06:05→14:00)
[2019-07-04] MEDS: TREPROSTINIL DIOLAMINE 0.125 MG PO SCH ×2 (06:05→14:00)
[2019-07-04 09:00] VITALS: BP 100/52
[2019-07-04] MEDS: BUMETANIDE 1 MG TAB PO SCH (09:41)
[2019-07-04] MEDS: FAMOTIDINE 20 MG TAB PO SCH (09:41)
[2019-07-04] MEDS: levoFLOXacin 500MG 100 ML IV SCH (09:41)
[2019-07-04 10:11] VITALS: BP 100/52
[2019-07-04 12:34] VITALS: BP 100/52
[2019-07-04 13:00] VITALS: BP 97/55
== END 2019-07-04 16:15 | disposition home health service (06) | DRG 166 ==
LOC: EDBD 15:28 → ER 15:41 → TELE 15:42 → DOU IN ICU 06-28 23:20 → EAST 07-01 13:15
PROVIDERS: ADMIT Nurse Practitioner Acute Care; ATTEND Internal Medicine
PROC: 06H03DZ Insertion of Intraluminal Device into Inferior Vena Cava, Percutaneous Approach (ICD-10-PCS; principal; 2019-06-30)
PROC: 30233N1 Transfusion of Nonautologous Red Blood Cells into Peripheral Vein, Percutaneous Approach (ICD-10-PCS; 2019-06-30)
DX: J18.9 Pneumonia, unspecified organism (principal); J96.21 Acute and chronic respiratory failure with hypoxia; K92.2 Gastrointestinal hemorrhage, unspecified; J44.0 Chronic obstructive pulmonary disease with (acute) lower respiratory infection; D50.9 Iron deficiency anemia, unspecified; N18.3 Chronic kidney disease, stage 3 (moderate); I12.9 Hypertensive chronic kidney disease with stage 1 through stage 4 chronic kidney disease, or unspecified chronic kidney disease; I25.10 Atherosclerotic heart disease of native coronary artery without angina pectoris; I27.21 Secondary pulmonary arterial hypertension; R55 Syncope and collapse; F32.9 Major depressive disorder, single episode, unspecified; I27.24 Chronic thromboembolic pulmonary hypertension; Z95.828 Presence of other vascular implants and grafts; Z66 Do not resuscitate; Z51.5 Encounter for palliative care; Z86.711 Personal history of pulmonary embolism; Z86.718 Personal history of other venous thrombosis and embolism; Z79.01 Long term (current) use of anticoagulants; Z79.899 Other long term (current) drug therapy; Z80.1 Family history of malignant neoplasm of trachea, bronchus and lung; Z82.0 Family history of epilepsy and other diseases of the nervous system; Z82.5 Family history of asthma and other chronic lower respiratory diseases; Z87.891 Personal history of nicotine dependence; Z99.81 Dependence on supplemental oxygen; Z83.3 Family history of diabetes mellitus
CPT/HCPCS: 36415; 36600; 70450; 71045; 80048; 80053; 81001; 82805; 83735; 83880; 84484; 85014; 85018; 85025; 85379; 85610; 85730; 86850; 86900; 86901; 86920; 87081; 87804; 93005; 94640; 96374; 97116; 97163; 97530; 99152; 99291; G0378; J1956; J2250